=== PATIENT | female | born 1940 | race Caucasian/White ===

== ENCOUNTER → 2016-08-12 | Outpatient (CLI) | payer MEDICARE, OTHER ==
[~2016-08-12] MED LIST: AMLO5TAB2 PO; FESO8TAB PO; INSU70IN9; LOVA40TA72 PO; METF-312 PO; NEBI5TAB2 PO; SERT-274 PO
== END | disposition home or self-care (01) ==
LOC: LAB 12:20
PROVIDERS: ATTEND Internal Medicine Cardiovascular Disease
DX: E11.9 Type 2 diabetes mellitus without complications (principal)
CPT/HCPCS: 36415; 83036

== ENCOUNTER → 2016-11-09 | Outpatient (CLI) | payer MEDICARE, OTHER ==
[2016-11-09 12:41] LABS: Urine Bilirubin Negative (Negative); Urine Blood 1+ /uL (Negative); Urine Color Yellow (Yellow); Urine Glucose Normal (Normal); Urine Ketone Negative (Negative); Urine Nitrite POSITIVE (Negative); Urine Urobilinogen Normal (Negative); Urine pH 7.5 (5.0-8.0)
[2016-11-09 12:59] LABS: Basophils # (auto) 0 uL; Basophils % (auto) 0.6 % (0.0-2.0); Eosinophils # (auto) 0.1 uL; Eosinophils % (auto) 2.8 % (0.0-7.0); Hematocrit 33.7 % (36.0-46.0); Hemoglobin 11.3 g/dL (12.2-16.2); Lymphocytes # (auto) 1.7 uL; Lymphocytes % (auto) 36.1 % (10.0-50.0); Mean Corpuscular Hemoglobin 30.1 pg (28.0-32.0); Mean Corpuscular Hgb Conc. 33.6 g/dL (32.0-36.0); Mean Corpuscular Volume 89.8 fL (80.0-100.0); Mean Platelet Volume 10.1 fL (7.4-10.4); Monocytes # (auto) 0.4 uL; Monocytes % (auto) 7.9 % (0.0-12.0); Neutrophils # (auto) 2.5 uL; Neutrophils % (auto) 52.6 % (37.0-80.0); Platelet Count (auto) 253 10^3/uL (140-450); Red Cell Distribution Width 12.9 % (11.6-16.0); White Blood Cell 4.8 10^3/uL (4.4-10.8)
[2016-11-09 13:01] LABS: Albumin 3.4 g/dL (3.4-5.0); Bilirubin, Direct 0.1 mg/dL (0-0.2); Bilirubin, Total 0.3 mg/dL (0.2-1.0); Potassium 3.9 mmol/L (3.5-5.1); Total Protein 7.1 g/dL (6.4-8.2)
== END | disposition home or self-care (01) ==
LOC: LAB 08:20
PROVIDERS: ATTEND Internal Medicine Cardiovascular Disease
DX: I10 Essential (primary) hypertension (principal); E78.00 Pure hypercholesterolemia, unspecified; K74.1 Hepatic sclerosis; E11.9 Type 2 diabetes mellitus without complications; E03.9 Hypothyroidism, unspecified; D64.9 Anemia, unspecified; E55.9 Vitamin D deficiency, unspecified; N39.0 Urinary tract infection, site not specified
CPT/HCPCS: 36415; 80048; 80061; 80076; 81003; 82306; 83036; 84443; 85025

== ENCOUNTER → 2017-02-10 | Outpatient (CLI) | payer MEDICARE, OTHER ==
[~2017-02-10] MED LIST changes: -METF-312 PO; +METF-370 PO
[2017-02-10 13:04] LABS: Basophils # (auto) 0 uL; Basophils % (auto) 0.6 % (0.0-2.0); CONDITION Y; Eosinophils # (auto) 0.2 uL; Eosinophils % (auto) 2.6 % (0.0-7.0); Hematocrit 38.3 % (36.0-46.0); Hemoglobin 12.8 g/dL (12.2-16.2); Lymphocytes # (auto) 2.5 uL; Lymphocytes % (auto) 31.3 % (10.0-50.0); Mean Corpuscular Hemoglobin 30.3 pg (28.0-32.0); Mean Corpuscular Hgb Conc. 33.5 g/dL (32.0-36.0); Mean Corpuscular Volume 90.2 fL (80.0-100.0); Monocytes # (auto) 0.5 uL; Monocytes % (auto) 6.7 % (0.0-12.0); Neutrophils # (auto) 4.7 uL; Neutrophils % (auto) 58.8 % (37.0-80.0); Platelet Count (auto) 253 10^3/uL (140-450); Red Cell Distribution Width 12.8 % (11.6-16.0); White Blood Cell 7.9 10^3/uL (4.4-10.8)
[2017-02-10 13:05] LABS: Urine Bilirubin Negative (Negative); Urine Blood 1+ /uL (Negative); Urine Color Yellow (Yellow); Urine Glucose Normal (Normal); Urine Ketone Negative (Negative); Urine Nitrite Negative (Negative); Urine Urobilinogen Normal (Negative); Urine pH 5.5 (5.0-8.0)
[2017-02-10 13:25] LABS: Albumin 3.2 g/dL (3.4-5.0); Bilirubin, Direct 0.1 mg/dL (0-0.2); Bilirubin, Total 0.7 mg/dL (0.2-1.0); Calcium 10.1 mg/dL (8.5-10.1); Potassium 3.9 mmol/L (3.5-5.1); Total Protein 6.6 g/dL (6.4-8.2)
== END | disposition home or self-care (01) ==
LOC: LAB 08:45
PROVIDERS: ATTEND Internal Medicine Cardiovascular Disease
DX: I10 Essential (primary) hypertension (principal); E78.00 Pure hypercholesterolemia, unspecified; K74.1 Hepatic sclerosis; E11.9 Type 2 diabetes mellitus without complications; E03.9 Hypothyroidism, unspecified; D64.9 Anemia, unspecified; E55.9 Vitamin D deficiency, unspecified; N39.0 Urinary tract infection, site not specified
CPT/HCPCS: 36415; 80048; 80061; 80076; 81003; 82306; 83036; 84443; 85025; 87086; 87088; 87186

== ENCOUNTER → 2017-04-30 | Outpatient (CLI) | payer MEDICARE, OTHER ==
[~2017-04-30] MED LIST changes: +SODIUM CHLORIDE 0.9% 250 ML IV SCH; +VANCOMYCIN 1GM/250ML 250 ML IV ONE; +cefTRIAXone 1GM/50ML D5W 50 ML IV ONE
[2017-04-30 13:40] VITALS: BP 169/53
[2017-04-30 16:01] LABS: Basophils # (auto) 0 uL; Basophils % (auto) 0.5 % (0.0-2.0); Eosinophils # (auto) 0.1 uL; Eosinophils % (auto) 1.4 % (0.0-7.0); Hematocrit 40.3 % (36.0-46.0); Hemoglobin 13.3 g/dL (12.2-16.2); Lymphocytes # (auto) 2.3 uL; Mean Corpuscular Hemoglobin 30.1 pg (28.0-32.0); Mean Platelet Volume 9.5 fL (6.9-10.8); Monocytes # (auto) 0.7 uL; Monocytes % (auto) 8.3 % (0.0-12.0); Neutrophils # (auto) 5.6 uL; Neutrophils % (auto) 63.8 % (37.0-80.0); Nucleated Red Blood Cells % 0.3 %; Platelet Count (auto) 208 10^3/uL (140-450); Red Cell Distribution Width 13.3 % (11.8-14.3); White Blood Cell 8.8 10^3/uL (4.4-10.8)
[2017-04-30 16:14] LABS: Albumin 3.2 g/dL (3.4-5.0); BUN/Creatinine Ratio 34.8; Bilirubin, Total 0.4 mg/dL (0.2-1.0); Calcium 9.9 mg/dL (8.5-10.1); Magnesium 2.7 mg/dL (1.6-2.6); Potassium 4.4 mmol/L (3.5-5.1); Total Protein 6.9 g/dL (6.4-8.2)
[2017-04-30 16:19] LABS: Urine Bilirubin Negative (Negative); Urine Blood 1+ /uL (Negative); Urine Ca Phosphate Crystal MANY /hpf (None Seen); Urine Color Yellow (Yellow); Urine Glucose 3+ mg/dL (Normal); Urine Ketone 2+ (Negative); Urine Mucus FEW (None Seen); Urine Nitrite Negative (Negative); Urine RBC 33 /hpf (0 - 4); Urine Urobilinogen Normal (Negative); Urine pH 8.5 (5.0-8.0)
== END | disposition home or self-care (01) ==
LOC: CHF HDHVI 11:22
PROVIDERS: ATTEND Internal Medicine Cardiovascular Disease
DX: I10 Essential (primary) hypertension (principal); E78.00 Pure hypercholesterolemia, unspecified; E11.9 Type 2 diabetes mellitus without complications; E03.9 Hypothyroidism, unspecified; D64.9 Anemia, unspecified; E55.9 Vitamin D deficiency, unspecified; N39.0 Urinary tract infection, site not specified; E83.42 Hypomagnesemia; A41.9 Sepsis, unspecified organism
CPT/HCPCS: 36415; 80053; 80061; 81001; 82306; 83036; 83735; 84443; 85025; 87040; 87086; 96365; 96366; 96367; G0463; J0696; J3370; 96361

== ENCOUNTER → 2017-06-24 | Outpatient (CLI) | payer MEDICARE, OTHER ==
[~2017-06-24] MED LIST changes: +ASPI81TA27 PO; +DONE10TA17 PO; +INS7030I SC; +LEV100T PO; -SODIUM CHLORIDE 0.9% 250 ML IV SCH; +TOLT4CAP12 PO; -VANCOMYCIN 1GM/250ML 250 ML IV ONE; +ZOLP10TA PO; -cefTRIAXone 1GM/50ML D5W 50 ML IV ONE
[2017-06-24 11:56] LABS: Urine Blood TRACE /uL (Negative); Urine Specific Gravity 1.023 (1.001-1.035)
== END | disposition home or self-care (01) ==
LOC: LAB 10:50
PROVIDERS: ATTEND Internal Medicine Cardiovascular Disease
DX: N39.0 Urinary tract infection, site not specified (principal)
CPT/HCPCS: 81003; 87086

== ENCOUNTER → 2017-07-12 | Outpatient (CLI) | payer MEDICARE, OTHER ==
[2017-07-12 12:32] LABS: Urine Blood 1+ /uL (Negative)
== END | disposition home or self-care (01) ==
LOC: Rad HDHVI 09:22
PROVIDERS: ATTEND Internal Medicine Cardiovascular Disease
DX: I35.0 Nonrheumatic aortic (valve) stenosis (principal); I70.0 Atherosclerosis of aorta; N39.0 Urinary tract infection, site not specified; I10 Essential (primary) hypertension
CPT/HCPCS: 81003; 87086; 93306

== ENCOUNTER → 2017-07-19 | Outpatient (CLI) | payer MEDICARE, OTHER ==
[~2017-07-19] VITALS: Ht 165.1 cm; Wt 90.7 kg
[~2017-07-19] MED LIST changes: +ADENOSINE 76 MG in GIVE UN-DILUTED 0 ML IV ONE; +ADENOSINE 90 MG/30 ML INJ IV ONE
== END | disposition home or self-care (01) ==
LOC: Rad HDHVI 09:48
PROVIDERS: ATTEND Internal Medicine Cardiovascular Disease
DX: I10 Essential (primary) hypertension (principal); E11.65 Type 2 diabetes mellitus with hyperglycemia; F03.90 Unspecified dementia, unspecified severity, without behavioral disturbance, psychotic disturbance, mood disturbance, and anxiety; E78.5 Hyperlipidemia, unspecified; N39.0 Urinary tract infection, site not specified; Z79.4 Long term (current) use of insulin
CPT/HCPCS: 78452; 93005; 96374; 96375; A9500; J0153

== ENCOUNTER → 2017-08-02 | Outpatient (CLI) | payer MEDICARE, OTHER ==
[~2017-08-02] MED LIST changes: -ADENOSINE 76 MG in GIVE UN-DILUTED 0 ML IV ONE; -ADENOSINE 90 MG/30 ML INJ IV ONE
[2017-08-02 17:07] LABS: Urine Blood 3+ /uL (Negative); Urine Specific Gravity 1.026 (1.001-1.035)
== END | disposition home or self-care (01) ==
LOC: Rad HDHVI 12:16
PROVIDERS: ATTEND Internal Medicine Cardiovascular Disease
DX: N28.1 Cyst of kidney, acquired (principal); K80.20 Calculus of gallbladder without cholecystitis without obstruction; K57.30 Diverticulosis of large intestine without perforation or abscess without bleeding; I70.0 Atherosclerosis of aorta; N39.0 Urinary tract infection, site not specified
CPT/HCPCS: 74176; 81003; 87086

== ENCOUNTER → 2017-08-03 | Outpatient (CLI) | payer MEDICARE, OTHER | END | disposition home or self-care (01) | LOC: Rad HDHVI 13:18 | PROVIDERS: ATTEND Internal Medicine Cardiovascular Disease | DX: I73.9 Peripheral vascular disease, unspecified (principal); I35.8 Other nonrheumatic aortic valve disorders; I10 Essential (primary) hypertension; E11.9 Type 2 diabetes mellitus without complications; E78.5 Hyperlipidemia, unspecified; N39.0 Urinary tract infection, site not specified; Z79.4 Long term (current) use of insulin | CPT/HCPCS: 93926 ==

== ENCOUNTER → 2017-08-16 | Outpatient (CLI) | payer MEDICARE, OTHER ==
[2017-08-16 11:08] VITALS: BP 180/68
[2017-08-16 12:43] VITALS: BP 175/49
[2017-08-16 16:29] LABS: Basophils # (auto) 0.1 uL; Basophils % (auto) 0.8 % (0.0-2.0); Eosinophils # (auto) 0.2 uL; Eosinophils % (auto) 2.4 % (0.0-7.0); Hematocrit 40.9 % (36.0-46.0); Hemoglobin 13.3 g/dL (12.2-16.2); Lymphocytes # (auto) 1.3 uL; Mean Corpuscular Hemoglobin 29.7 pg (28.0-32.0); Mean Corpuscular Hgb Conc. 32.6 g/dL (32.0-36.0); Mean Corpuscular Volume 91.3 fL (80.0-100.0); Monocytes # (auto) 0.6 uL; Monocytes % (auto) 8.9 % (0.0-12.0); Neutrophils # (auto) 5.1 uL; Neutrophils % (auto) 69.9 % (37.0-80.0); Nucleated Red Blood Cells % 0.4 %; Platelet Count (auto) 208 10^3/uL (140-450); Red Blood Cells 4.48 10^6/uL (4.0-5.20); Red Cell Distribution Width 13.8 % (11.8-14.3); White Blood Cell 7.3 10^3/uL (4.4-10.8)
[2017-08-16 16:35] LABS: BUN/Creatinine Ratio 29.4; Calcium 9.2 mg/dL (8.5-10.1); Potassium 3.8 mmol/L (3.5-5.1)
[2017-08-16 16:44] LABS: INR 1.05 (0.9-1.15); Partial Thromboplastin Time 27.8 sec (22.64-33.71); Prothrombin Time 11.4 sec (9.37-12.3)
== END | disposition home or self-care (01) ==
LOC: Rad HDHVI 10:03
PROVIDERS: ATTEND Internal Medicine Cardiovascular Disease
DX: Z01.818 Encounter for other preprocedural examination (principal); I70.0 Atherosclerosis of aorta; D64.9 Anemia, unspecified; I10 Essential (primary) hypertension; R79.1 Abnormal coagulation profile
CPT/HCPCS: 36415; 71046; 80048; 85025; 85610; 85730

== ENCOUNTER 2017-08-18 06:39 | Inpatient (IN) | payer MEDICARE, OTHER ==
[~2017-08-18] VITALS: Ht 165.1 cm; Wt 75.0 kg
[~2017-08-18 06:39] MED LIST changes: -FESO8TAB PO; -INSU70IN9
[2017-08-18] MEDS ORDERED: LIDOCAINE 2%HCL (LOCAL ANESTH.) INJ 20ML MDV ONE (07:09)
[2017-08-18] MEDS ORDERED: IOHEXOL 350 MG/ML 100ML IJ ONE ×2 (07:09→08:40)
[2017-08-18] MEDS ORDERED: MIDAZOLAM HCL 1MG/1ML-2 ML VIAL ONE (08:00)
[2017-08-18] MEDS ORDERED: ANGIOMAX 250 MG VIAL IV ONE (08:00)
[2017-08-18] MEDS ORDERED: fentaNYL CITRATE 100 MCG/2 ML VL ONE (08:00)
[2017-08-18] MEDS ORDERED: SODIUM CHL 0.9% 50 ML ONE (08:00)
[2017-08-18] MEDS ORDERED: CLOPIDOGREL 300 MG TAB ONE (08:50)
[2017-08-18] MEDS ORDERED: ASPirin 325 MG TAB ONE (08:51)
[2017-08-18] MEDS ORDERED: MORPHINE SULFATE 4 MG/ML SYR/VIAL IV PRN (09:30)
[2017-08-18] MEDS ORDERED: NITROGLYCERIN 0.4 MG SL TAB SL PRN (09:30)
[2017-08-18] MEDS ORDERED: DEXTROSE (50%) 50ML SYRG IV PRN (09:30)
[2017-08-18] MEDS ORDERED: ENALAPRILAT 1.25 MG/ML-1ML VIAL IV ONE ×2 (09:34→09:45)
[2017-08-18] MEDS: ACCU-CHEK COMFORT CURVE STRIP VI SCH ×3 (10:15→22:18)
[2017-08-18] MEDS ORDERED: ZOLPIDEM TARTRATE 5 MG TAB PO PRN (10:30)
[2017-08-18] MEDS: InsuLIN REG 1unit/0.01ml Soln (100units/ml) SC SCH ×3 (11:21→22:27)
[2017-08-18] MEDS ORDERED: cloNIDine HCL 0.1 MG TAB ONE (11:25)
[2017-08-18] MEDS ORDERED: cloNIDine HCL 0.1 MG TAB PO ONE (11:30)
[2017-08-18 17:25] VITALS: BP 135/55
[2017-08-18] MEDS ORDERED: INSULIN 70/30 1unit/0.01ml Susp (100units/ml) SC SCH (18:00)
[2017-08-18] MEDS ORDERED: DONEPEZIL HYDROCHLORIDE 5 MG TAB PO SCH (22:00)
[2017-08-18] MEDS ORDERED: PRAVASTATIN SODIUM 20 MG TAB PO SCH (22:00)
[2017-08-19 05:00] VITALS: BP 149/61
[2017-08-19] MEDS ORDERED: INSULIN 70/30 1unit/0.01ml Susp (100units/ml) SC SCH (07:00)
[2017-08-19] MEDS: ACCU-CHEK COMFORT CURVE STRIP VI SCH ×2 (07:08→13:24)
[2017-08-19] MEDS: InsuLIN REG 1unit/0.01ml Soln (100units/ml) SC SCH ×2 (07:09→11:30)
[2017-08-19 08:00] VITALS: BP 154/75
[2017-08-19] MEDS ORDERED: ASPirin-EC 81 mg tab PO SCH (10:00)
[2017-08-19] MEDS ORDERED: CLOPIDOGREL BISULFATE 75 MG TAB PO SCH (10:00)
[2017-08-19] MEDS ORDERED: LEVOTHYROXINE SODIUM 100 MCG TAB PO SCH (10:00)
[2017-08-19] MEDS ORDERED: amLODIPine BESYLATE 5 MG TAB PO SCH (10:00)
[2017-08-19] MEDS ORDERED: ASPirin 325 MG TAB PO SCH (10:00)
[2017-08-19] MEDS ORDERED: SERTRALINE HCL 50 MG TAB PO SCH ×2 (10:00)
[2017-08-19 12:00] VITALS: BP 157/73
[2017-08-19 17:00] VITALS: BP 164/84
[2017-08-19 18:08] VITALS: BP 143/78
[2017-08-19 18:21] VITALS: BP 143/78
== END 2017-08-19 19:05 | disposition home or self-care (01) | DRG 247 ==
LOC: CATH 06:39 → TELE-EAST 06:40
PROVIDERS: ADMIT Internal Medicine; ATTEND Internal Medicine
PROC: 027034Z Dilation of Coronary Artery, One Artery with Drug-eluting Intraluminal Device, Percutaneous Approach (ICD-10-PCS; principal; 2017-08-18)
PROC: 4A023N8 Measurement of Cardiac Sampling and Pressure, Bilateral, Percutaneous Approach (ICD-10-PCS; 2017-08-18)
PROC: B2111ZZ Fluoroscopy of Multiple Coronary Arteries using Low Osmolar Contrast (ICD-10-PCS; 2017-08-18)
PROC: B2151ZZ Fluoroscopy of Left Heart using Low Osmolar Contrast (ICD-10-PCS; 2017-08-18)
DX: I25.10 Atherosclerotic heart disease of native coronary artery without angina pectoris (principal); I27.20 Pulmonary hypertension, unspecified; E11.9 Type 2 diabetes mellitus without complications; F03.90 Unspecified dementia, unspecified severity, without behavioral disturbance, psychotic disturbance, mood disturbance, and anxiety; N31.9 Neuromuscular dysfunction of bladder, unspecified; E78.5 Hyperlipidemia, unspecified; I10 Essential (primary) hypertension; Z82.49 Family history of ischemic heart disease and other diseases of the circulatory system
CPT/HCPCS: 36415; 71046; 80048; 82962; 85025; 85610; 85730; 92928; 93460; 99152; C1874; G0463; J1815; J2250

== ENCOUNTER → 2017-09-16 | Outpatient (CLI) | payer MEDICARE, OTHER ==
[2017-09-16 15:54] LABS: Urine Blood 2+ /uL (Negative); Urine Specific Gravity 1.023 (1.001-1.035)
== END | disposition home or self-care (01) ==
LOC: LAB 12:45
PROVIDERS: ATTEND Internal Medicine
DX: N39.0 Urinary tract infection, site not specified (principal)
CPT/HCPCS: 81003; 87086

== ENCOUNTER → 2017-11-24 | Outpatient (CLI) | payer MEDICARE, OTHER ==
[~2017-11-24] MED LIST changes: +EPINEPHrine HCL 1 MG/10 ML SYRG IV ONE; +EPINEPHrine HCL 1 MG/10 ML SYRG ONE; +LIDOCAINE 1% (LOCAL ANESTH.) PF 5ml SDV IJ ONE; +LIDOCAINE 1% (LOCAL ANESTH.) PF 5ml SDV ONE
[2017-11-24 11:35] VITALS: BP 140/56
[2017-11-24 12:45] VITALS: BP 111/61
[2017-11-24 15:58] LABS: Basophils # (auto) 0 uL; Basophils % (auto) 0.5 % (0.0-2.0); Eosinophils # (auto) 0.3 uL; Eosinophils % (auto) 3.1 % (0.0-7.0); Hematocrit 36.8 % (36.0-46.0); Lymphocytes % (auto) 24.1 % (10.0-50.0); Mean Corpuscular Hemoglobin 29.8 pg (28.0-32.0); Mean Corpuscular Hgb Conc. 32.6 g/dL (32.0-36.0); Mean Corpuscular Volume 91.2 fL (80.0-100.0); Monocytes # (auto) 0.6 uL; Monocytes % (auto) 6.8 % (0.0-12.0); Neutrophils # (auto) 5.5 uL; Neutrophils % (auto) 65.5 % (37.0-80.0); Nucleated Red Blood Cells % 0.3 %; Platelet Count (auto) 218 10^3/uL (140-450); Red Blood Cells 4.03 10^6/uL (4.0-5.20); Red Cell Distribution Width 14.3 % (11.8-14.3); White Blood Cell 8.5 10^3/uL (4.4-10.8)
[2017-11-24 16:22] LABS: Bilirubin, Total 0.4 mg/dL (0.2-1.0); Calcium 9.4 mg/dL (8.5-10.1); Magnesium 2.7 mg/dL (1.6-2.6); Potassium 3.6 mmol/L (3.5-5.1); Total Protein 6.5 g/dL (6.4-8.2)
== END | disposition home or self-care (01) ==
LOC: CHF HDHVI 11:49
PROVIDERS: ATTEND Internal Medicine Cardiovascular Disease
DX: R97.0 Elevated carcinoembryonic antigen [CEA] (principal); I10 Essential (primary) hypertension; D64.9 Anemia, unspecified; E83.40 Disorders of magnesium metabolism, unspecified; Z85.3 Personal history of malignant neoplasm of breast
CPT/HCPCS: 36415; 80053; 82378; 83735; 85025; 96372; G0463; J0171

== ENCOUNTER → 2017-12-06 | Outpatient (CLI) | payer MEDICARE, OTHER ==
[~2017-12-06] MED LIST changes: -EPINEPHrine HCL 1 MG/10 ML SYRG IV ONE; -EPINEPHrine HCL 1 MG/10 ML SYRG ONE; -LIDOCAINE 1% (LOCAL ANESTH.) PF 5ml SDV IJ ONE; -LIDOCAINE 1% (LOCAL ANESTH.) PF 5ml SDV ONE
[2017-12-06 12:21] LABS: Urine Blood 1+ /uL (Negative); Urine Specific Gravity 1.023 (1.001-1.035)
== END | disposition home or self-care (01) ==
LOC: LAB 10:28
PROVIDERS: ATTEND Internal Medicine
DX: N39.0 Urinary tract infection, site not specified (principal); I10 Essential (primary) hypertension; E11.9 Type 2 diabetes mellitus without complications; E78.5 Hyperlipidemia, unspecified
CPT/HCPCS: 81003; 87086

== ENCOUNTER 2018-01-05 10:35 | Day surgery (SDC) | payer MEDICARE, OTHER ==
[2018-01-03 11:30] LABS: Basophils # (auto) 0.1 uL; Basophils % (auto) 0.7 % (0.0-2.0); Eosinophils # (auto) 0.3 uL; Eosinophils % (auto) 3.2 % (0.0-7.0); Hematocrit 41.1 % (36.0-46.0); Hemoglobin 13.3 g/dL (12.2-16.2); Lymphocytes # (auto) 1.7 uL; Lymphocytes % (auto) 20.6 % (10.0-50.0); Mean Corpuscular Hemoglobin 29.8 pg (28.0-32.0); Mean Corpuscular Hgb Conc. 32.4 g/dL (32.0-36.0); Mean Corpuscular Volume 92.2 fL (80.0-100.0); Monocytes # (auto) 0.7 uL; Monocytes % (auto) 7.9 % (0.0-12.0); Neutrophils # (auto) 5.7 uL; Neutrophils % (auto) 67.6 % (37.0-80.0); Nucleated Red Blood Cells % 0.1 %; Platelet Count (auto) 220 10^3/uL (140-450); Red Blood Cells 4.46 10^6/uL (4.0-5.20); Red Cell Distribution Width 13.6 % (11.8-14.3); White Blood Cell 8.4 10^3/uL (4.4-10.8)
[2018-01-03 11:46] LABS: INR 1.02 (0.9-1.15); Partial Thromboplastin Time 27.7 sec (23.78-33.04); Prothrombin Time 10.9 sec (9.27-12.13)
[2018-01-03 11:58] LABS: Albumin 3.2 g/dL (3.4-5.0); BUN/Creatinine Ratio 31.2; Bilirubin, Total 0.4 mg/dL (0.2-1.0); Calcium 9.3 mg/dL (8.5-10.1); Potassium 3.9 mmol/L (3.5-5.1); Total Protein 6.9 g/dL (6.4-8.2)
[~2018-01-05] VITALS: Ht 165.1 cm; Wt 88.5 kg
[~2018-01-05 10:35] MED LIST changes: -AMLO5TAB2 PO; +CLOP75TA28 PO; +LETR2.5T PO; +METH1TAB PO; +PANT40TA2 PO; +TOLT2CAP7 PO; -ZOLP10TA PO
[2018-01-05] MEDS ORDERED: BUPIVACAINE 0.25% INJ 50ML VIAL ONE (12:36)
[2018-01-05] MEDS ORDERED: ceFAZolin 1GM/50ML 50 ML IV ONE (12:46)
[2018-01-05] MEDS ORDERED: MIDAZOLAM HCL 1MG/1ML-2 ML VIAL ONE ×2 (12:59→13:24)
[2018-01-05] MEDS ORDERED: BUPIVACAINE W/ EPINEPH 0.25% INJ 50ML MDV ONE (12:59)
[2018-01-05] MEDS ORDERED: LIDOCAINE HCL 2 %PF INJ 10ML AMP IJ ONE (12:59)
[2018-01-05] MEDS ORDERED: PROPOFOL 10 MG/ML 20 ML IV ONE (12:59)
[2018-01-05] MEDS ORDERED: LIDOCAINE W/ EPINEPHRINE 1 % INJ 30ML ONE (12:59)
[2018-01-05] MEDS ORDERED: MORPHINE SULF INJ 2 MG/ML SYRINGE 1ML IV PRN (13:15)
[2018-01-05] MEDS ORDERED: hydrALAZINE HCL 20 MG/ML VL IV PRN (13:15)
[2018-01-05] MEDS ORDERED: NALOXONE HCL 0.4 MG/ML VIAL IV PRN (13:15)
[2018-01-05] MEDS ORDERED: ACCU-CHEK COMFORT CURVE STRIP VI ONE (13:15)
[2018-01-05] MEDS ORDERED: ONDANSETRON HCL 4 MG/2 ML VIAL IV ONE (13:15)
[2018-01-05] MEDS ORDERED: fentaNYL CITRATE 100 MCG/2 ML VL ONE (13:22)
[2018-01-05] MEDS ORDERED: ePHEDrine SULFATE 50 MG/ML AMP ONE (13:36)
[2018-01-05 14:37] VITALS: BP 170/65
== END 2018-01-05 14:45 | disposition home or self-care (01) ==
LOC: SUR 10:35
PROVIDERS: ATTEND Surgery
DX: C50.912 Malignant neoplasm of unspecified site of left female breast (principal); J44.9 Chronic obstructive pulmonary disease, unspecified; E66.9 Obesity, unspecified; E11.9 Type 2 diabetes mellitus without complications; I25.10 Atherosclerotic heart disease of native coronary artery without angina pectoris; F03.90 Unspecified dementia, unspecified severity, without behavioral disturbance, psychotic disturbance, mood disturbance, and anxiety; J40 Bronchitis, not specified as acute or chronic; I10 Essential (primary) hypertension; G47.33 Obstructive sleep apnea (adult) (pediatric); K21.9 Gastro-esophageal reflux disease without esophagitis; M06.9 Rheumatoid arthritis, unspecified; F32.9 Major depressive disorder, single episode, unspecified; E03.9 Hypothyroidism, unspecified; Z68.32 Body mass index [BMI] 32.0-32.9, adult; Z85.3 Personal history of malignant neoplasm of breast; Z95.1 Presence of aortocoronary bypass graft; Z82.3 Family history of stroke; Z82.49 Family history of ischemic heart disease and other diseases of the circulatory system; Z98.890 Other specified postprocedural states; Z79.82 Long term (current) use of aspirin; Z79.84 Long term (current) use of oral hypoglycemic drugs; Z79.899 Other long term (current) drug therapy; Z90.12 Acquired absence of left breast and nipple; Z86.73 Personal history of transient ischemic attack (TIA), and cerebral infarction without residual deficits
CPT/HCPCS: 19120; 36415; 80053; 82962; 85025; 85610; 85730; J0690; J2250; J2704; J3010; J3490; A6257

== ENCOUNTER → 2018-01-21 | Outpatient (CLI) | payer MEDICARE, OTHER | END | disposition home or self-care (01) | LOC: LAB 08:42 | PROVIDERS: ATTEND Internal Medicine | DX: E61.1 Iron deficiency (principal); R79.89 Other specified abnormal findings of blood chemistry; I10 Essential (primary) hypertension; E11.9 Type 2 diabetes mellitus without complications; E03.9 Hypothyroidism, unspecified; E78.5 Hyperlipidemia, unspecified; J44.9 Chronic obstructive pulmonary disease, unspecified; Z79.82 Long term (current) use of aspirin; Z79.899 Other long term (current) drug therapy | CPT/HCPCS: 82728; 83540; 83550 ==

== ENCOUNTER → 2018-02-04 | Outpatient (CLI) | payer MEDICARE, OTHER ==
[2018-02-04 12:00] LABS: Basophils # (auto) 0 uL; Basophils % (auto) 0.7 % (0.0-2.0); Eosinophils # (auto) 0.1 uL; Eosinophils % (auto) 2.1 % (0.0-7.0); Hematocrit 38.4 % (36.0-46.0); Hemoglobin 12.8 g/dL (12.2-16.2); Lymphocytes # (auto) 1.4 uL; Mean Corpuscular Hemoglobin 30.1 pg (28.0-32.0); Mean Corpuscular Hgb Conc. 33.3 g/dL (32.0-36.0); Mean Corpuscular Volume 90.2 fL (80.0-100.0); Monocytes # (auto) 0.6 uL; Monocytes % (auto) 8.5 % (0.0-12.0); Neutrophils # (auto) 4.7 uL; Neutrophils % (auto) 68.7 % (37.0-80.0); Nucleated Red Blood Cells % 0.1 %; Platelet Count (auto) 205 10^3/uL (140-450); Red Blood Cells 4.25 10^6/uL (4.0-5.20); Red Cell Distribution Width 12.9 % (11.8-14.3); White Blood Cell 6.9 10^3/uL (4.4-10.8)
[2018-02-04 12:37] LABS: Albumin 3.3 g/dL (3.4-5.0); Bilirubin, Total 0.4 mg/dL (0.2-1.0); Calcium 9.4 mg/dL (8.5-10.1); Potassium 3.8 mmol/L (3.5-5.1); Total Protein 6.8 g/dL (6.4-8.2)
== END | disposition home or self-care (01) ==
LOC: LAB 11:27
PROVIDERS: ATTEND Internal Medicine
DX: C50.912 Malignant neoplasm of unspecified site of left female breast (principal)
CPT/HCPCS: 36415; 80053; 83615; 85025; 86300

== ENCOUNTER 2018-02-16 11:47 | Emergency (ER) | payer MEDICARE, OTHER ==
[~2018-02-16] VITALS: Ht 165.1 cm; Wt 96.6 kg
[2018-02-16 15:00] VITALS: BP 146/62
== END 2018-02-16 16:55 | disposition home or self-care (01) ==
LOC: ER 11:49
DX: C50.512 Malignant neoplasm of lower-outer quadrant of left female breast (principal); L98.9 Disorder of the skin and subcutaneous tissue, unspecified; I10 Essential (primary) hypertension
CPT/HCPCS: 82962

== ENCOUNTER 2018-03-23 06:42 | Inpatient (IN) | payer MEDICARE, OTHER ==
[2018-03-21 12:53] LABS: Basophils # (auto) 0 uL; Basophils % (auto) 0.4 % (0.0-2.0); Eosinophils # (auto) 0.1 uL; Hematocrit 38.3 % (36.0-46.0); Hemoglobin 12.6 g/dL (12.2-16.2); Lymphocytes # (auto) 1.7 uL; Mean Corpuscular Hemoglobin 29.9 pg (28.0-32.0); Mean Corpuscular Hgb Conc. 32.9 g/dL (32.0-36.0); Mean Corpuscular Volume 90.8 fL (80.0-100.0); Monocytes # (auto) 0.6 uL; Monocytes % (auto) 8.3 % (0.0-12.0); Neutrophils # (auto) 4.6 uL; Neutrophils % (auto) 65.3 % (37.0-80.0); Platelet Count (auto) 231 10^3/uL (140-450); Red Blood Cells 4.22 10^6/uL (4.0-5.20); Red Cell Distribution Width 14.1 % (11.8-14.3); White Blood Cell 7.1 10^3/uL (4.4-10.8)
[2018-03-21 13:03] LABS: INR 0.99 (0.9-1.15); Partial Thromboplastin Time 26.8 sec (23.78-33.04); Prothrombin Time 10.6 sec (9.27-12.13)
[2018-03-21 13:09] LABS: Albumin 2.9 g/dL (3.4-5.0); BUN/Creatinine Ratio 26.3; Potassium 3.9 mmol/L (3.5-5.1)
[2018-03-21 13:12] LABS: Bilirubin, Total 0.4 mg/dL (0.2-1.0); Total Protein 6.5 g/dL (6.4-8.2)
[~2018-03-23] VITALS: Ht 165.1 cm; Wt 97.6 kg
[~2018-03-23 06:42] MED LIST changes: +LOSA100T33 PO; -METH1TAB PO; +OXYB5TAB61 PO; +PREN-96 PO; -SERT-274 PO; -TOLT2CAP7 PO; -TOLT4CAP12 PO; +TURM500C3 OR; +ZOLP10TA PO
[2018-03-23] MEDS ORDERED: ceFAZolin 1GM/50ML 50 ML IV ONE (08:15)
[2018-03-23] MEDS ORDERED: SUCCINYLCHOLINE CHLORIDE 20 MG/ML 10ML VIAL IV ONE (09:19)
[2018-03-23] MEDS ORDERED: ETOMIDATE (2MG/ML) 20ML VIAL IV ONE (09:19)
[2018-03-23] MEDS ORDERED: fentaNYL CITRATE 5 ML ONE (09:20)
[2018-03-23] MEDS ORDERED: MIDAZOLAM HCL 1MG/1ML-2 ML VIAL ONE (09:20)
[2018-03-23] MEDS ORDERED: PROPOFOL 10 MG/ML 20 ML IV ONE (09:23)
[2018-03-23] MEDS ORDERED: DEXAMETHASONE SOD PHOS 10MG/1ML VIAL INJ ONE (09:23)
[2018-03-23] MEDS ORDERED: ePHEDrine SULFATE 50 MG/ML AMP IV PRN (10:15)
[2018-03-23] MEDS ORDERED: MORPHINE SULFATE 4 MG/ML SYR/VIAL IV PRN ×3 (10:15→12:45)
[2018-03-23] MEDS ORDERED: LABETALOL HCL 5 MG/ML 4ML SYRINGE IV PRN (10:15)
[2018-03-23] MEDS ORDERED: ONDANSETRON HCL 4 MG/2 ML VIAL IV ONE (10:15)
[2018-03-23] MEDS ORDERED: MIDAZOLAM HCL 1MG/1ML-2 ML VIAL IV PRN (10:15)
[2018-03-23] MEDS ORDERED: HYDROmorphone HCL 2 MG/ML VL IV PRN (10:15)
[2018-03-23] MEDS ORDERED: NITROGLYCERIN 0.4 MG SL TAB SL PRN (11:30)
[2018-03-23] MEDS ORDERED: MORPHINE SULFATE 4 MG/ML SYR/VIAL IV ONE (12:00)
[2018-03-23] MEDS ORDERED: LOSARTAN POTASSIUM 50 MG TAB PO ONE (12:45)
[2018-03-23] MEDS ORDERED: DEXTROSE (50%) 50ML SYRG IV PRN (12:45)
[2018-03-23] MEDS ORDERED: ONDANSETRON HCL 4 MG/2 ML VIAL IV PRN (12:45)
[2018-03-23] MEDS ORDERED: LABETALOL HCL 5 MG/ML ML 20ML VIAL IV PRN (13:00)
[2018-03-23 14:14] VITALS: BP 162/70
[2018-03-23] MEDS: HYDROcodone-ACET 5/325MG TAB PO PRN (15:09)
[2018-03-23] MEDS ORDERED: guaiFENesin 200 MG/10 ML UD PO PRN (15:30)
[2018-03-23] MEDS: ACCU-CHEK COMFORT CURVE STRIP VI SCH ×2 (16:31→22:26)
[2018-03-23] MEDS: InsuLIN REG 1unit/0.01ml Soln (100units/ml) SC SCH ×2 (17:02→22:26)
[2018-03-23 17:04] VITALS: BP 161/65
[2018-03-23 17:15] VITALS: BP 149/58
[2018-03-23 22:00] VITALS: BP 125/43
[2018-03-24 05:00] VITALS: BP 119/54
[2018-03-24 05:07] LABS: Basophils # (auto) 0 uL; Basophils % (auto) 0.2 % (0.0-2.0); Eosinophils # (auto) 0 uL; Hematocrit 31.1 % (36.0-46.0); Hemoglobin 10.5 g/dL (12.2-16.2); Lymphocytes # (auto) 1.5 uL; Lymphocytes % (auto) 15.2 % (10.0-50.0); Mean Corpuscular Hemoglobin 30.5 pg (28.0-32.0); Mean Corpuscular Hgb Conc. 33.8 g/dL (32.0-36.0); Mean Corpuscular Volume 90.1 fL (80.0-100.0); Monocytes % (auto) 10.1 % (0.0-12.0); Neutrophils # (auto) 7.2 uL; Neutrophils % (auto) 74.5 % (37.0-80.0); Platelet Count (auto) 214 10^3/uL (140-450); Red Blood Cells 3.46 10^6/uL (4.0-5.20); Red Cell Distribution Width 13.8 % (11.8-14.3); White Blood Cell 9.7 10^3/uL (4.4-10.8)
[2018-03-24 05:26] LABS: BUN/Creatinine Ratio 29.1; Calcium 8.7 mg/dL (8.5-10.1); Potassium 3.9 mmol/L (3.5-5.1)
[2018-03-24] MEDS: ACCU-CHEK COMFORT CURVE STRIP VI SCH (06:44)
[2018-03-24] MEDS: InsuLIN REG 1unit/0.01ml Soln (100units/ml) SC SCH (06:44)
[2018-03-24] MEDS ORDERED: LEVOTHYROXINE SODIUM 100 MCG TAB PO SCH (07:00)
[2018-03-24 08:13] VITALS: BP 115/56
[2018-03-24] MEDS: HYDROcodone-ACET 5/325MG TAB PO PRN (09:21)
[2018-03-24] MEDS ORDERED: PANTOPRAZOLE 40 MG TAB PO SCH (10:00)
[2018-03-24] MEDS ORDERED: BYSTOLIC 5 MG PO SCH (10:00)
[2018-03-24] MEDS ORDERED: LOSARTAN POTASSIUM 50 MG TAB PO SCH (10:00)
[2018-03-24 10:12] VITALS: BP 115/56
== END 2018-03-24 11:48 | disposition home or self-care (01) | DRG 583 ==
LOC: SUR 06:42 → TELE-CENTR 06:43
PROVIDERS: ADMIT Surgery; ATTEND Internal Medicine
PROC: 0HTU0ZZ Resection of Left Breast, Open Approach (ICD-10-PCS; principal; 2018-03-23 09:19)
DX: C50.912 Malignant neoplasm of unspecified site of left female breast (principal); E66.9 Obesity, unspecified; E03.9 Hypothyroidism, unspecified; E11.9 Type 2 diabetes mellitus without complications; E78.5 Hyperlipidemia, unspecified; F03.90 Unspecified dementia, unspecified severity, without behavioral disturbance, psychotic disturbance, mood disturbance, and anxiety; I10 Essential (primary) hypertension; I25.10 Atherosclerotic heart disease of native coronary artery without angina pectoris; Z95.5 Presence of coronary angioplasty implant and graft; Z68.35 Body mass index [BMI] 35.0-35.9, adult; Z79.899 Other long term (current) drug therapy
CPT/HCPCS: 36415; 80048; 80053; 82962; 83036; 84443; 85025; 85610; 85730; J0330; J0690; J1100; J1815; J2250; J2405; J2704

== ENCOUNTER 2018-03-29 20:22 | Emergency (ER) | payer MEDICARE, OTHER | END 2018-03-29 21:30 | disposition left against medical advice (07) | LOC: ER 20:22 | DX: T81.89XA Other complications of procedures, not elsewhere classified, initial encounter (principal); Z53.21 Procedure and treatment not carried out due to patient leaving prior to being seen by health care provider ==

== ENCOUNTER 2018-04-09 12:48 | Inpatient (IN) | payer MEDICARE, OTHER ==
[~2018-04-09] VITALS: Ht 165.1 cm; Wt 100.6 kg
[2018-04-09] MEDS ORDERED: SODIUM CHLORIDE 0.9% 1,000 ML IV ONE (13:29)
[2018-04-09] MEDS ORDERED: PIPERACILLIN-TAZOB 3.375GM 100 ML IV ONE (13:30)
[2018-04-09 14:30] LABS: Basophils # (auto) 0 uL; Basophils % (auto) 0.1 % (0.0-2.0); Eosinophils # (auto) 0 uL; Hematocrit 31.3 % (36.0-46.0); Lymphocytes # (auto) 0.9 uL; Lymphocytes % (auto) 4.3 % (10.0-50.0); Mean Corpuscular Volume 90.7 fL (80.0-100.0); Monocytes # (auto) 2.4 uL; Monocytes % (auto) 11.4 % (0.0-12.0); Neutrophils % (auto) 84.2 % (37.0-80.0); Platelet Count (auto) 350 10^3/uL (140-450); Red Blood Cells 3.45 10^6/uL (4.0-5.20); Red Cell Distribution Width 14.3 % (11.8-14.3); White Blood Cell 21.3 10^3/uL (4.4-10.8)
[2018-04-09 14:43] LABS: INR 1.02 (0.9-1.15); Partial Thromboplastin Time 29.4 sec (23.78-33.04); Prothrombin Time 10.9 sec (9.27-12.13)
[2018-04-09 14:55] LABS: Albumin 2.1 g/dL (3.4-5.0); Anion Gap 10 (5-15); BUN/Creatinine Ratio 24.8; Blood Urea Nitrogen 33 mg/dL (7-18); Calcium 8.8 mg/dL (8.5-10.1); Carbon Dioxide 23 mmol/L (21-32); Chloride 105 mmol/L (98-107); GFR African American 49 mL/min; GFR Non-African American 41 mL/min; Glucose 226 mg/dL (74-106); Potassium 4.2 mmol/L (3.5-5.1); Sodium 138 mmol/L (136-145)
[2018-04-09 15:00] LABS: Alanine Aminotransferase 20 U/L (13-56); Alkaline Phosphatase 95 U/L (45-117); Aspartate Aminotransferase 18 U/L (15-37); Bilirubin, Total 0.7 mg/dL (0.2-1.0); Total Protein 6.5 g/dL (6.4-8.2)
[2018-04-09] MEDS ORDERED: HYDROcodone-ACET 5/325MG TAB ONE (15:01)
[2018-04-09 15:02] LABS: Lactic Acid w/Reflex 3.6 mmol/L (0.4-2.0)
[2018-04-09] MEDS ORDERED: DEXTROSE (50%) 50ML SYRG IV PRN (16:15)
[2018-04-09] MEDS ORDERED: HYDROcodone-ACET 5/325MG TAB PO ONE (16:15)
[2018-04-09] MEDS ORDERED: VANCOMYCIN PER PHARMACY 0 MG IV SCH (16:15)
[2018-04-09] MEDS ORDERED: ONDANSETRON HCL 4 MG/2 ML VIAL IV PRN (16:30)
[2018-04-09] MEDS ORDERED: MORPHINE SULFATE 4 MG/ML SYR/VIAL IV PRN (16:30)
[2018-04-09] MEDS ORDERED: NITROGLYCERIN 0.4 MG SL TAB SL PRN (16:30)
[2018-04-09] MEDS ORDERED: VANCOMYCIN 1GM/250ML 250 ML IV ONE (17:00)
[2018-04-09] MEDS ORDERED: ZINC SULFATE 220mg CAP or TAB PO ONE (17:00)
[2018-04-09] MEDS ORDERED: ASCORBIC ACID 500 MG TAB PO ONE (17:00)
[2018-04-09] MEDS ORDERED: MULTIPLE VITAMIN TAB PO ONE (17:00)
[2018-04-09] MEDS: ACCU-CHEK COMFORT CURVE STRIP VI SCH ×2 (17:10→22:00)
[2018-04-09] MEDS: InsuLIN REG 1unit/0.01ml Soln (100units/ml) SC SCH ×2 (17:18→22:00)
[2018-04-09] MEDS: INSULIN 70/30 1unit/0.01ml Susp (100units/ml) SC SCH (17:24)
[2018-04-09] MEDS: Glucerna Carbsteady SHAKE Vanilla 8oz PO SCH (18:00)
[2018-04-09] MEDS: PIPERACILLIN-TAZOB 2.25GM 50 ML IV SCH (18:00)
[2018-04-09 19:27] LABS: Lactic Acid w/Reflex 2.8 mmol/L (0.4-2.0)
[2018-04-09] MEDS: MORPHINE SULFATE 4 MG/ML SYR/VIAL IV PRN (20:14)
[2018-04-09 22:00] VITALS: BP 122/49
[2018-04-09] MEDS: SODIUM CHLOR 0.9% PF (SALINE LOCK) 10ML VIAL/SYR IV SCH (22:00)
[2018-04-09] MEDS: DONEPEZIL HYDROCHLORIDE 5 MG TAB PO SCH (22:33)
[2018-04-09] MEDS: ATORVASTATIN 20 MG TAB PO SCH (22:33)
[2018-04-09] MEDS: ASCORBIC ACID 500 MG TAB PO SCH (22:34)
[2018-04-09] MEDS: FAMOTIDINE 20 MG TAB PO SCH (22:34)
[2018-04-10] VITALS (7 sets, daily range): BP systolic 122–151; BP diastolic 48–61
[2018-04-10] MEDS: SODIUM CHLOR 0.9% PF (SALINE LOCK) 10ML VIAL/SYR IV SCH ×3 (06:05→22:20)
[2018-04-10] MEDS: PIPERACILLIN-TAZOB 2.25GM 50 ML IV SCH ×4 (06:05→17:56)
[2018-04-10] MEDS: LEVOTHYROXINE SODIUM 100 MCG TAB PO SCH (06:05)
[2018-04-10] MEDS: InsuLIN REG 1unit/0.01ml Soln (100units/ml) SC SCH ×4 (06:05→22:18)
[2018-04-10] MEDS: ACCU-CHEK COMFORT CURVE STRIP VI SCH ×4 (06:06→22:19)
[2018-04-10 07:59] LABS: Albumin 1.6 g/dL (3.4-5.0); Calcium 8.4 mg/dL (8.5-10.1); Potassium 3.9 mmol/L (3.5-5.1)
[2018-04-10] MEDS: Glucerna Carbsteady SHAKE Vanilla 8oz PO SCH ×3 (08:00→17:57)
[2018-04-10 08:01] LABS: Basophils # (auto) 0 uL; Basophils % (auto) 0.2 % (0.0-2.0); Eosinophils # (auto) 0.2 uL; Monocytes # (auto) 1.8 uL; White Blood Cell 15.5 10^3/uL (4.4-10.8)
[2018-04-10 08:03] LABS: BUN/Creatinine Ratio 35.8; Bilirubin, Total 0.4 mg/dL (0.2-1.0); Hematocrit 25.4 % (36.0-46.0); Hemoglobin 8.1 g/dL (12.2-16.2); Lymphocytes # (auto) 1.8 uL; Lymphocytes % (auto) 11.5 % (10.0-50.0); Mean Corpuscular Hemoglobin 28.6 pg (28.0-32.0); Mean Corpuscular Volume 89.5 fL (80.0-100.0); Monocytes % (auto) 11.4 % (0.0-12.0); Neutrophils # (auto) 11.8 uL; Neutrophils % (auto) 75.9 % (37.0-80.0); Platelet Count (auto) 297 10^3/uL (140-450); Red Blood Cells 2.84 10^6/uL (4.0-5.20); Total Protein 5.2 g/dL (6.4-8.2)
[2018-04-10] MEDS: INSULIN 70/30 1unit/0.01ml Susp (100units/ml) SC SCH ×2 (08:32→17:57)
[2018-04-10] MEDS: OXYBUTYNIN CHL 5 MG TAB PO SCH (09:56)
[2018-04-10] MEDS: CLOPIDOGREL BISULFATE 75 MG TAB PO SCH (09:56)
[2018-04-10] MEDS: ZINC SULFATE 220mg CAP or TAB PO SCH (09:56)
[2018-04-10] MEDS: ASCORBIC ACID 500 MG TAB PO SCH ×2 (09:56→22:19)
[2018-04-10] MEDS: ASPirin-EC 81 mg tab PO SCH (09:57)
[2018-04-10] MEDS: PANTOPRAZOLE 40 MG TAB PO SCH (09:58)
[2018-04-10] MEDS: LETROZOLE 2.5MG TAB PO SCH (10:00)
[2018-04-10] MEDS: TURMERIC 500 MG PO SCH (10:00)
[2018-04-10] MEDS: MULTIPLE VITAMIN TAB PO SCH (10:00)
[2018-04-10] MEDS: BYSTOLIC 5 MG PO SCH (10:00)
[2018-04-10] MEDS: PRENATAL VITAMIN TAB PO SCH (10:00)
[2018-04-10] MEDS: LOSARTAN POTASSIUM 25 MG TAB PO SCH (10:00)
[2018-04-10] MEDS: HYDROcodone-ACET 5/325MG TAB PO PRN ×2 (10:36→20:46)
[2018-04-10] MEDS: VANCOMYCIN 1GM/250ML 250 ML IV SCH (16:07)
[2018-04-10] MEDS: ATORVASTATIN 20 MG TAB PO SCH (22:19)
[2018-04-10] MEDS: DONEPEZIL HYDROCHLORIDE 5 MG TAB PO SCH (22:19)
[2018-04-10] MEDS: TEMAZEPAM 15 MG CAP PO PRN (22:19)
[2018-04-10] MEDS: FAMOTIDINE 20 MG TAB PO SCH (22:19)
[2018-04-11] MEDS: PIPERACILLIN-TAZOB 2.25GM 50 ML IV SCH ×5 (00:19→23:27)
[2018-04-11] MEDS: HYDROcodone-ACET 5/325MG TAB PO PRN ×4 (03:16→22:00)
[2018-04-11 05:00] VITALS: BP 124/47
[2018-04-11] MEDS: SODIUM CHLOR 0.9% PF (SALINE LOCK) 10ML VIAL/SYR IV SCH ×3 (05:53→21:54)
[2018-04-11] MEDS: InsuLIN REG 1unit/0.01ml Soln (100units/ml) SC SCH ×4 (06:29→21:52)
[2018-04-11] MEDS: ACCU-CHEK COMFORT CURVE STRIP VI SCH ×4 (06:29→21:52)
[2018-04-11] MEDS: LEVOTHYROXINE SODIUM 100 MCG TAB PO SCH (06:30)
[2018-04-11] MEDS: Glucerna Carbsteady SHAKE Vanilla 8oz PO SCH ×3 (08:37→18:15)
[2018-04-11] MEDS: INSULIN 70/30 1unit/0.01ml Susp (100units/ml) SC SCH ×2 (08:37→18:15)
[2018-04-11] MEDS: MULTIPLE VITAMIN TAB PO SCH (10:00)
[2018-04-11] MEDS: ASCORBIC ACID 500 MG TAB PO SCH ×2 (11:20→21:53)
[2018-04-11] MEDS: ASPirin-EC 81 mg tab PO SCH (11:20)
[2018-04-11] MEDS: OXYBUTYNIN CHL 5 MG TAB PO SCH (11:20)
[2018-04-11] MEDS: CLOPIDOGREL BISULFATE 75 MG TAB PO SCH (11:20)
[2018-04-11] MEDS: PANTOPRAZOLE 40 MG TAB PO SCH (11:21)
[2018-04-11] MEDS: ZINC SULFATE 220mg CAP or TAB PO SCH (11:22)
[2018-04-11] MEDS: PRENATAL VITAMIN TAB PO SCH (11:23)
[2018-04-11] MEDS: LETROZOLE 2.5MG TAB PO SCH (11:23)
[2018-04-11] MEDS: BYSTOLIC 5 MG PO SCH (11:23)
[2018-04-11] MEDS: TURMERIC 500 MG PO SCH (11:23)
[2018-04-11] MEDS: LOSARTAN POTASSIUM 25 MG TAB PO SCH (11:25)
[2018-04-11 14:30] VITALS: BP 120/76
[2018-04-11 16:44] VITALS: BP 120/62
[2018-04-11] MEDS: VANCOMYCIN 1GM/250ML 250 ML IV SCH (17:45)
[2018-04-11] MEDS: FAMOTIDINE 20 MG TAB PO SCH (21:53)
[2018-04-11] MEDS: ATORVASTATIN 20 MG TAB PO SCH (21:53)
[2018-04-11] MEDS: DONEPEZIL HYDROCHLORIDE 5 MG TAB PO SCH (21:54)
[2018-04-11 22:00] VITALS: BP 130/46
[2018-04-12] MEDS: SODIUM CHLOR 0.9% PF (SALINE LOCK) 10ML VIAL/SYR IV SCH ×3 (05:29→20:40)
[2018-04-12 05:30] VITALS: BP 126/47
[2018-04-12] MEDS: PIPERACILLIN-TAZOB 2.25GM 50 ML IV SCH ×4 (05:30→23:52)
[2018-04-12] MEDS: LEVOTHYROXINE SODIUM 100 MCG TAB PO SCH (05:30)
[2018-04-12] MEDS: InsuLIN REG 1unit/0.01ml Soln (100units/ml) SC SCH ×4 (06:26→20:47)
[2018-04-12] MEDS: ACCU-CHEK COMFORT CURVE STRIP VI SCH ×4 (06:27→20:40)
[2018-04-12] MEDS: HYDROcodone-ACET 5/325MG TAB PO PRN ×2 (06:35→21:00)
[2018-04-12] MEDS: Glucerna Carbsteady SHAKE Vanilla 8oz PO SCH ×3 (08:00→18:00)
[2018-04-12] MEDS: INSULIN 70/30 1unit/0.01ml Susp (100units/ml) SC SCH ×2 (08:31→18:39)
[2018-04-12 08:36] VITALS: BP 136/55
[2018-04-12 09:44] LABS: Red Cell Distribution Width 14.4 % (11.8-14.3)
[2018-04-12 09:46] LABS: Hematocrit 32.7 % (36.0-46.0); Hemoglobin 10.5 g/dL (12.2-16.2); Mean Corpuscular Hemoglobin 28.7 pg (28.0-32.0); Mean Corpuscular Hgb Conc. 32.2 g/dL (32.0-36.0); Mean Corpuscular Volume 89.1 fL (80.0-100.0); Platelet Count (auto) 434 10^3/uL (140-450); Red Blood Cells 3.67 10^6/uL (4.0-5.20); White Blood Cell 17.4 10^3/uL (4.4-10.8)
[2018-04-12] MEDS: ZINC SULFATE 220mg CAP or TAB PO SCH (09:56)
[2018-04-12] MEDS: ASPirin-EC 81 mg tab PO SCH (09:57)
[2018-04-12] MEDS: ASCORBIC ACID 500 MG TAB PO SCH ×2 (09:57→20:39)
[2018-04-12] MEDS: OXYBUTYNIN CHL 5 MG TAB PO SCH (09:57)
[2018-04-12] MEDS: MULTIPLE VITAMIN TAB PO SCH (09:57)
[2018-04-12] MEDS: CLOPIDOGREL BISULFATE 75 MG TAB PO SCH (09:57)
[2018-04-12] MEDS: PANTOPRAZOLE 40 MG TAB PO SCH (09:57)
[2018-04-12] MEDS: LOSARTAN POTASSIUM 25 MG TAB PO SCH (09:57)
[2018-04-12] MEDS: TURMERIC 500 MG PO SCH (09:58)
[2018-04-12] MEDS: LETROZOLE 2.5MG TAB PO SCH (09:58)
[2018-04-12] MEDS: PRENATAL VITAMIN TAB PO SCH (09:58)
[2018-04-12] MEDS: BYSTOLIC 5 MG PO SCH (09:59)
[2018-04-12 10:02] LABS: Band Neutrophils % (manual) 0; Basophils % (manual) 0 (0.0-2.0); Blast Cells 0; Eosinophils % (manual) 0 (0-7); Myelocytes % 0; Promyelocytes % 0; Reactive Lymphocytes 0
[2018-04-12 10:09] LABS: Lymphocytes % (manual) 19 (10.0-50.0); Metamyelocytes % 1; Monocytes % (manual) 6 (0-12)
[2018-04-12] MEDS ORDERED: ENOXAPARIN SOD 40 MG/0.4 ML SYRINGE SC ONE (11:00)
[2018-04-12 12:26] VITALS: BP 155/73
[2018-04-12] MEDS: MORPHINE SULFATE 4 MG/ML SYR/VIAL IV PRN (16:27)
[2018-04-12 16:41] VITALS: BP 164/82
[2018-04-12] MEDS: Pro-Stat SF 30ml Vanilla PO SCH (18:00)
[2018-04-12] MEDS: FAMOTIDINE 20 MG TAB PO SCH (20:38)
[2018-04-12] MEDS: ATORVASTATIN 20 MG TAB PO SCH (20:39)
[2018-04-12] MEDS: DONEPEZIL HYDROCHLORIDE 5 MG TAB PO SCH (20:39)
[2018-04-12 22:00] VITALS: BP 137/49
[2018-04-13] MEDS: HYDROcodone-ACET 5/325MG TAB PO PRN ×3 (02:10→20:35)
[2018-04-13] MEDS: LEVOTHYROXINE SODIUM 100 MCG TAB PO SCH (05:27)
[2018-04-13] MEDS: SODIUM CHLOR 0.9% PF (SALINE LOCK) 10ML VIAL/SYR IV SCH ×3 (05:27→21:47)
[2018-04-13] MEDS: PIPERACILLIN-TAZOB 2.25GM 50 ML IV SCH (05:27)
[2018-04-13 05:30] VITALS: BP 127/56
[2018-04-13] MEDS: ACCU-CHEK COMFORT CURVE STRIP VI SCH ×4 (06:02→22:25)
[2018-04-13] MEDS: InsuLIN REG 1unit/0.01ml Soln (100units/ml) SC SCH ×4 (06:03→22:00)
[2018-04-13] MEDS: INSULIN 70/30 1unit/0.01ml Susp (100units/ml) SC SCH ×2 (08:14→18:20)
[2018-04-13] MEDS: Glucerna Carbsteady SHAKE Vanilla 8oz PO SCH ×3 (08:15→18:00)
[2018-04-13] MEDS: Pro-Stat SF 30ml Vanilla PO SCH ×2 (08:15→18:00)
[2018-04-13 08:28] LABS: Potassium 4.3 mmol/L (3.5-5.1)
[2018-04-13 08:29] LABS: Hematocrit 30.1 % (36.0-46.0); Hemoglobin 9.9 g/dL (12.2-16.2); Mean Corpuscular Hemoglobin 29.2 pg (28.0-32.0); Mean Corpuscular Hgb Conc. 32.8 g/dL (32.0-36.0); Mean Corpuscular Volume 89.1 fL (80.0-100.0); Platelet Count (auto) 399 10^3/uL (140-450); Red Blood Cells 3.38 10^6/uL (4.0-5.20); Red Cell Distribution Width 14.3 % (11.8-14.3); White Blood Cell 14.6 10^3/uL (4.4-10.8)
[2018-04-13 08:31] LABS: BUN/Creatinine Ratio 18.2; Calcium 8.6 mg/dL (8.5-10.1)
[2018-04-13 08:38] LABS: Basophils % (manual) 0 (0.0-2.0); Blast Cells 0; Promyelocytes % 0; Reactive Lymphocytes 0
[2018-04-13 08:43] VITALS: BP 114/47
[2018-04-13 09:58] LABS: Band Neutrophils % (manual) 5; Eosinophils % (manual) 1 (0-7); Lymphocytes % (manual) 14 (10.0-50.0); Metamyelocytes % 2; Monocytes % (manual) 8 (0-12); Myelocytes % 2
[2018-04-13] MEDS: TURMERIC 500 MG PO SCH (10:00)
[2018-04-13] MEDS: LOSARTAN POTASSIUM 25 MG TAB PO SCH (10:00)
[2018-04-13] MEDS: PRENATAL VITAMIN TAB PO SCH (10:00)
[2018-04-13] MEDS: BYSTOLIC 5 MG PO SCH (10:16)
[2018-04-13] MEDS: LETROZOLE 2.5MG TAB PO SCH (10:16)
[2018-04-13] MEDS: PANTOPRAZOLE 40 MG TAB PO SCH (10:19)
[2018-04-13] MEDS: CLOPIDOGREL BISULFATE 75 MG TAB PO SCH (10:19)
[2018-04-13] MEDS: OXYBUTYNIN CHL 5 MG TAB PO SCH (10:19)
[2018-04-13] MEDS: ZINC SULFATE 220mg CAP or TAB PO SCH (10:19)
[2018-04-13] MEDS: MULTIPLE VITAMIN TAB PO SCH (10:19)
[2018-04-13] MEDS: ASCORBIC ACID 500 MG TAB PO SCH ×2 (10:19→21:47)
[2018-04-13] MEDS: ENOXAPARIN SOD 40 MG/0.4 ML SYRINGE SC SCH (10:19)
[2018-04-13] MEDS: ASPirin-EC 81 mg tab PO SCH (10:19)
[2018-04-13] MEDS: MORPHINE SULFATE 4 MG/ML SYR/VIAL IV PRN (11:25)
[2018-04-13] MEDS ORDERED: VANCOMYCIN 1GM/250ML 250 ML IV SCH (12:00)
[2018-04-13 12:48] VITALS: BP 157/66
[2018-04-13 17:21] VITALS: BP 140/72
[2018-04-13] MEDS: VANCOMYCIN 1GM/250ML 250 ML IV SCH (18:20)
[2018-04-13] MEDS: FAMOTIDINE 20 MG TAB PO SCH (21:47)
[2018-04-13] MEDS: DONEPEZIL HYDROCHLORIDE 5 MG TAB PO SCH (21:47)
[2018-04-13] MEDS: ATORVASTATIN 20 MG TAB PO SCH (21:47)
[2018-04-13 21:52] VITALS: BP 153/73
[2018-04-14 04:53] VITALS: BP 134/69
[2018-04-14 06:16] LABS: Hemoglobin 9.8 g/dL (12.2-16.2); Mean Corpuscular Volume 89.3 fL (80.0-100.0)
[2018-04-14 06:18] LABS: Hematocrit 29.8 % (36.0-46.0); Mean Corpuscular Hemoglobin 29.4 pg (28.0-32.0); Mean Corpuscular Hgb Conc. 32.9 g/dL (32.0-36.0); Platelet Count (auto) 452 10^3/uL (140-450); Red Blood Cells 3.34 10^6/uL (4.0-5.20); Red Cell Distribution Width 14.3 % (11.8-14.3)
[2018-04-14 06:24] LABS: Basophils % (manual) 0 (0.0-2.0); Blast Cells 0; Myelocytes % 0; Promyelocytes % 0; Reactive Lymphocytes 0
[2018-04-14 06:31] LABS: Calcium 8.8 mg/dL (8.5-10.1)
[2018-04-14 06:33] LABS: BUN/Creatinine Ratio 18.5
[2018-04-14] MEDS: SODIUM CHLOR 0.9% PF (SALINE LOCK) 10ML VIAL/SYR IV SCH ×4 (06:41→21:33)
[2018-04-14] MEDS: LEVOTHYROXINE SODIUM 100 MCG TAB PO SCH (06:42)
[2018-04-14] MEDS: InsuLIN REG 1unit/0.01ml Soln (100units/ml) SC SCH ×4 (06:42→21:51)
[2018-04-14] MEDS: ACCU-CHEK COMFORT CURVE STRIP VI SCH ×4 (06:42→21:50)
[2018-04-14 06:49] LABS: Band Neutrophils % (manual) 3
[2018-04-14 06:50] LABS: Eosinophils % (manual) 2 (0-7); Lymphocytes % (manual) 20 (10.0-50.0); Metamyelocytes % 2; Monocytes % (manual) 6 (0-12)
[2018-04-14] MEDS: HYDROcodone-ACET 5/325MG TAB PO PRN ×3 (06:55→20:35)
[2018-04-14] MEDS: Pro-Stat SF 30ml Vanilla PO SCH ×2 (08:00→17:04)
[2018-04-14] MEDS: Glucerna Carbsteady SHAKE Vanilla 8oz PO SCH ×3 (08:00→17:04)
[2018-04-14] MEDS: INSULIN 70/30 1unit/0.01ml Susp (100units/ml) SC SCH ×2 (08:21→17:04)
[2018-04-14 09:00] VITALS: BP 155/72
[2018-04-14] MEDS: LETROZOLE 2.5MG TAB PO SCH (09:22)
[2018-04-14] MEDS: CLOPIDOGREL BISULFATE 75 MG TAB PO SCH (09:23)
[2018-04-14] MEDS: BYSTOLIC 5 MG PO SCH (09:23)
[2018-04-14] MEDS: PANTOPRAZOLE 40 MG TAB PO SCH (09:23)
[2018-04-14] MEDS: ZINC SULFATE 220mg CAP or TAB PO SCH (09:23)
[2018-04-14] MEDS: OXYBUTYNIN CHL 5 MG TAB PO SCH (09:23)
[2018-04-14] MEDS: MULTIPLE VITAMIN TAB PO SCH (09:24)
[2018-04-14] MEDS: LOSARTAN POTASSIUM 25 MG TAB PO SCH (09:24)
[2018-04-14] MEDS: ASCORBIC ACID 500 MG TAB PO SCH ×2 (09:24→21:33)
[2018-04-14] MEDS: ASPirin-EC 81 mg tab PO SCH (09:25)
[2018-04-14] MEDS: TURMERIC 500 MG PO SCH (09:25)
[2018-04-14] MEDS: ENOXAPARIN SOD 40 MG/0.4 ML SYRINGE SC SCH (09:25)
[2018-04-14] MEDS: PRENATAL VITAMIN TAB PO SCH (09:25)
[2018-04-14] MEDS ORDERED: LIDOCAINE 1% (LOCAL ANESTH.) PF 5ml SDV ID ONE (11:45)
[2018-04-14] MEDS: VANCOMYCIN 1GM/250ML 250 ML IV SCH (11:51)
[2018-04-14 13:29] VITALS: BP 154/66
[2018-04-14 16:54] VITALS: BP 159/74
[2018-04-14] MEDS: ATORVASTATIN 20 MG TAB PO SCH (21:32)
[2018-04-14] MEDS: DONEPEZIL HYDROCHLORIDE 5 MG TAB PO SCH (21:32)
[2018-04-14] MEDS: FAMOTIDINE 20 MG TAB PO SCH (21:33)
[2018-04-14 21:34] VITALS: BP 166/64
[2018-04-15 04:40] VITALS: BP 141/90
[2018-04-15] MEDS: SODIUM CHLOR 0.9% PF (SALINE LOCK) 10ML VIAL/SYR IV SCH ×5 (06:00→21:13)
[2018-04-15 06:01] LABS: Hematocrit 31.2 % (36.0-46.0); Hemoglobin 10.4 g/dL (12.2-16.2); Mean Corpuscular Hemoglobin 29.2 pg (28.0-32.0); Mean Corpuscular Hgb Conc. 33.2 g/dL (32.0-36.0); Platelet Count (auto) 494 10^3/uL (140-450); Red Blood Cells 3.55 10^6/uL (4.0-5.20); Red Cell Distribution Width 14.2 % (11.8-14.3); White Blood Cell 15.2 10^3/uL (4.4-10.8)
[2018-04-15 06:05] LABS: Basophils % (manual) 0 (0.0-2.0); Blast Cells 0; Metamyelocytes % 0; Myelocytes % 0; Promyelocytes % 0; Reactive Lymphocytes 0
[2018-04-15 06:15] LABS: BUN/Creatinine Ratio 18.1; Calcium 8.9 mg/dL (8.5-10.1); Potassium 4.2 mmol/L (3.5-5.1)
[2018-04-15] MEDS: ACCU-CHEK COMFORT CURVE STRIP VI SCH ×4 (06:29→21:18)
[2018-04-15] MEDS: LEVOTHYROXINE SODIUM 100 MCG TAB PO SCH (06:29)
[2018-04-15] MEDS: InsuLIN REG 1unit/0.01ml Soln (100units/ml) SC SCH ×4 (06:30→21:18)
[2018-04-15] MEDS: VANCOMYCIN 1GM/250ML 250 ML IV SCH ×2 (07:01→21:00)
[2018-04-15 07:50] LABS: Band Neutrophils % (manual) 1; Eosinophils % (manual) 2 (0-7); Lymphocytes % (manual) 16 (10.0-50.0); Monocytes % (manual) 8 (0-12)
[2018-04-15] MEDS: Pro-Stat SF 30ml Vanilla PO SCH ×2 (08:00→18:00)
[2018-04-15] MEDS: Glucerna Carbsteady SHAKE Vanilla 8oz PO SCH ×3 (08:00→18:00)
[2018-04-15] MEDS: INSULIN 70/30 1unit/0.01ml Susp (100units/ml) SC SCH ×2 (08:00→17:15)
[2018-04-15] MEDS: LOSARTAN POTASSIUM 25 MG TAB PO SCH (08:30)
[2018-04-15 08:55] VITALS: BP 195/81
[2018-04-15] MEDS: ENOXAPARIN SOD 40 MG/0.4 ML SYRINGE SC SCH (09:41)
[2018-04-15] MEDS: MORPHINE SULFATE 4 MG/ML SYR/VIAL IV PRN ×2 (09:41→15:18)
[2018-04-15] MEDS: ASPirin-EC 81 mg tab PO SCH (09:44)
[2018-04-15] MEDS: ZINC SULFATE 220mg CAP or TAB PO SCH (09:44)
[2018-04-15] MEDS: ASCORBIC ACID 500 MG TAB PO SCH ×2 (09:44→21:12)
[2018-04-15] MEDS: CLOPIDOGREL BISULFATE 75 MG TAB PO SCH (09:45)
[2018-04-15] MEDS: OXYBUTYNIN CHL 5 MG TAB PO SCH (09:45)
[2018-04-15] MEDS: PANTOPRAZOLE 40 MG TAB PO SCH (09:45)
[2018-04-15] MEDS: MULTIPLE VITAMIN TAB PO SCH (09:45)
[2018-04-15] MEDS: LETROZOLE 2.5MG TAB PO SCH ×2 (09:50→14:50)
[2018-04-15] MEDS: TURMERIC 500 MG PO SCH (09:50)
[2018-04-15] MEDS: BYSTOLIC 5 MG PO SCH ×2 (09:50→14:50)
[2018-04-15] MEDS: PRENATAL VITAMIN TAB PO SCH (10:03)
[2018-04-15 10:10] VITALS: BP 192/142
[2018-04-15] MEDS: cloNIDine HCL 0.1 MG TAB PO PRN (11:49)
[2018-04-15 13:00] VITALS: BP 166/105
[2018-04-15 17:08] VITALS: BP 151/80
[2018-04-15] MEDS: ATORVASTATIN 20 MG TAB PO SCH (21:13)
[2018-04-15] MEDS: FAMOTIDINE 20 MG TAB PO SCH (21:13)
[2018-04-15] MEDS: DONEPEZIL HYDROCHLORIDE 5 MG TAB PO SCH (21:13)
[2018-04-15 22:00] VITALS: BP 155/57
[2018-04-15] MEDS: HYDROcodone-ACET 5/325MG TAB PO PRN (23:11)
[2018-04-16 05:27] VITALS: BP 172/59
[2018-04-16] MEDS: SODIUM CHLOR 0.9% PF (SALINE LOCK) 10ML VIAL/SYR IV SCH ×5 (06:20→22:01)
[2018-04-16] MEDS: LEVOTHYROXINE SODIUM 100 MCG TAB PO SCH (06:20)
[2018-04-16] MEDS: cloNIDine HCL 0.1 MG TAB PO PRN (06:21)
[2018-04-16] MEDS: ACCU-CHEK COMFORT CURVE STRIP VI SCH ×4 (06:43→22:01)
[2018-04-16] MEDS: InsuLIN REG 1unit/0.01ml Soln (100units/ml) SC SCH ×4 (06:43→22:00)
[2018-04-16] MEDS: HYDROcodone-ACET 5/325MG TAB PO PRN ×3 (06:55→18:56)
[2018-04-16] MEDS: Pro-Stat SF 30ml Vanilla PO SCH ×2 (08:00→18:00)
[2018-04-16 08:38] VITALS: BP 114/44
[2018-04-16] MEDS: Glucerna Carbsteady SHAKE Vanilla 8oz PO SCH ×3 (09:31→18:51)
[2018-04-16] MEDS: BYSTOLIC 5 MG PO SCH (09:52)
[2018-04-16] MEDS: ENOXAPARIN SOD 40 MG/0.4 ML SYRINGE SC SCH (09:53)
[2018-04-16] MEDS: ZINC SULFATE 220mg CAP or TAB PO SCH (09:53)
[2018-04-16] MEDS: PRENATAL VITAMIN TAB PO SCH (09:53)
[2018-04-16] MEDS: MULTIPLE VITAMIN TAB PO SCH (09:53)
[2018-04-16] MEDS: LETROZOLE 2.5MG TAB PO SCH (09:53)
[2018-04-16] MEDS: PANTOPRAZOLE 40 MG TAB PO SCH (09:54)
[2018-04-16] MEDS: ASCORBIC ACID 500 MG TAB PO SCH ×2 (09:54→22:01)
[2018-04-16] MEDS: CLOPIDOGREL BISULFATE 75 MG TAB PO SCH (09:54)
[2018-04-16] MEDS: ASPirin-EC 81 mg tab PO SCH (09:54)
[2018-04-16] MEDS: LOSARTAN POTASSIUM 25 MG TAB PO SCH (09:54)
[2018-04-16] MEDS: OXYBUTYNIN CHL 5 MG TAB PO SCH (09:55)
[2018-04-16] MEDS: TURMERIC 500 MG PO SCH (10:00)
[2018-04-16] MEDS: INSULIN 70/30 1unit/0.01ml Susp (100units/ml) SC SCH ×2 (10:03→18:51)
[2018-04-16] MEDS ORDERED: FUROSEMIDE 40 MG/4 ML VIAL IV ONE (11:15)
[2018-04-16] MEDS: VANCOMYCIN 1GM/250ML 250 ML IV SCH (11:27)
[2018-04-16 13:00] VITALS: BP 141/53
[2018-04-16 17:00] VITALS: BP 140/54
[2018-04-16] MEDS: MORPHINE SULFATE 4 MG/ML SYR/VIAL IV PRN (20:34)
[2018-04-16 22:00] VITALS: BP 126/41
[2018-04-16] MEDS: ACETAMINOPHEN 325 MG TAB PO PRN (22:00)
[2018-04-16] MEDS ORDERED: FLUCONAZOLE 100 MG TAB PO ONE (22:00)
[2018-04-16] MEDS: TEMAZEPAM 15 MG CAP PO PRN (22:00)
[2018-04-16] MEDS: DONEPEZIL HYDROCHLORIDE 5 MG TAB PO SCH (22:01)
[2018-04-16] MEDS: ATORVASTATIN 20 MG TAB PO SCH (22:01)
[2018-04-16] MEDS: FAMOTIDINE 20 MG TAB PO SCH (22:01)
[2018-04-16 22:25] LABS: Urine Bacteria FEW /hpf (None Seen); Urine Blood Negative /uL (Negative); Urine Mucus FEW (None Seen); Urine Specific Gravity 1.007 (1.001-1.035); Urine WBC 2 /hpf (0 - 5)
[2018-04-17] MEDS: VANCOMYCIN 1GM/250ML 250 ML IV SCH ×2 (00:50→15:00)
[2018-04-17 05:00] VITALS: BP 155/62
[2018-04-17] MEDS: SODIUM CHLOR 0.9% PF (SALINE LOCK) 10ML VIAL/SYR IV SCH ×5 (06:00→22:11)
[2018-04-17] MEDS: InsuLIN REG 1unit/0.01ml Soln (100units/ml) SC SCH ×4 (06:45→22:00)
[2018-04-17] MEDS: ACCU-CHEK COMFORT CURVE STRIP VI SCH ×4 (06:45→22:11)
[2018-04-17] MEDS: LEVOTHYROXINE SODIUM 100 MCG TAB PO SCH (06:45)
[2018-04-17] MEDS: Pro-Stat SF 30ml Vanilla PO SCH ×2 (08:00→18:00)
[2018-04-17] MEDS: Glucerna Carbsteady SHAKE Vanilla 8oz PO SCH ×3 (08:00→18:00)
[2018-04-17] MEDS: INSULIN 70/30 1unit/0.01ml Susp (100units/ml) SC SCH ×2 (08:18→19:05)
[2018-04-17] MEDS: HYDROcodone-ACET 5/325MG TAB PO PRN ×3 (08:35→20:08)
[2018-04-17 08:48] VITALS: BP 139/65
[2018-04-17] MEDS: TURMERIC 500 MG PO SCH (10:00)
[2018-04-17] MEDS: BYSTOLIC 5 MG PO SCH (10:03)
[2018-04-17] MEDS: ENOXAPARIN SOD 40 MG/0.4 ML SYRINGE SC SCH (10:03)
[2018-04-17] MEDS: FLUCONAZOLE 100 MG TAB PO SCH (10:04)
[2018-04-17] MEDS: MULTIPLE VITAMIN TAB PO SCH (10:05)
[2018-04-17] MEDS: ASPirin-EC 81 mg tab PO SCH (10:05)
[2018-04-17] MEDS: ZINC SULFATE 220mg CAP or TAB PO SCH (10:05)
[2018-04-17] MEDS: LOSARTAN POTASSIUM 25 MG TAB PO SCH (10:05)
[2018-04-17] MEDS: OXYBUTYNIN CHL 5 MG TAB PO SCH (10:05)
[2018-04-17] MEDS: ASCORBIC ACID 500 MG TAB PO SCH ×2 (10:05→22:11)
[2018-04-17] MEDS: CLOPIDOGREL BISULFATE 75 MG TAB PO SCH (10:05)
[2018-04-17] MEDS: LETROZOLE 2.5MG TAB PO SCH (10:06)
[2018-04-17] MEDS: PANTOPRAZOLE 40 MG TAB PO SCH (10:22)
[2018-04-17] MEDS: PRENATAL VITAMIN TAB PO SCH (10:22)
[2018-04-17 12:23] LABS: Hemoglobin 8.7 g/dL (12.2-16.2); Mean Corpuscular Hemoglobin 28.4 pg (28.0-32.0); Mean Corpuscular Hgb Conc. 32.2 g/dL (32.0-36.0); Mean Corpuscular Volume 88.2 fL (80.0-100.0); Platelet Count (auto) 496 10^3/uL (140-450); Red Blood Cells 3.06 10^6/uL (4.0-5.20); Red Cell Distribution Width 14.4 % (11.8-14.3); White Blood Cell 17.6 10^3/uL (4.4-10.8)
[2018-04-17 12:29] LABS: Basophils % (manual) 0 (0.0-2.0); Blast Cells 0; Promyelocytes % 0; Reactive Lymphocytes 0
[2018-04-17 12:39] LABS: Albumin 1.4 g/dL (3.4-5.0); Calcium 8.5 mg/dL (8.5-10.1); Potassium 3.7 mmol/L (3.5-5.1)
[2018-04-17 12:43] LABS: BUN/Creatinine Ratio 22.2; Bilirubin, Total 0.2 mg/dL (0.2-1.0); Total Protein 5.3 g/dL (6.4-8.2)
[2018-04-17 12:54] VITALS: BP 149/73
[2018-04-17 14:22] LABS: Band Neutrophils % (manual) 1; Eosinophils % (manual) 1 (0-7); Lymphocytes % (manual) 10 (10.0-50.0); Metamyelocytes % 2; Monocytes % (manual) 4 (0-12); Myelocytes % 2
[2018-04-17 17:03] VITALS: BP 109/79
[2018-04-17 22:00] VITALS: BP 134/79
[2018-04-17] MEDS: ATORVASTATIN 20 MG TAB PO SCH (22:11)
[2018-04-17] MEDS: DONEPEZIL HYDROCHLORIDE 5 MG TAB PO SCH (22:11)
[2018-04-17] MEDS: FAMOTIDINE 20 MG TAB PO SCH (22:11)
[2018-04-17] MEDS: MORPHINE SULFATE 4 MG/ML SYR/VIAL IV PRN (22:12)
[2018-04-18] MEDS: SODIUM CHLOR 0.9% PF (SALINE LOCK) 10ML VIAL/SYR IV SCH ×5 (04:54→22:00)
[2018-04-18] MEDS: VANCOMYCIN 1GM/250ML 250 ML IV SCH ×2 (04:54→23:00)
[2018-04-18 05:00] VITALS: BP 126/67
[2018-04-18] MEDS: LEVOTHYROXINE SODIUM 100 MCG TAB PO SCH (06:16)
[2018-04-18] MEDS: ACCU-CHEK COMFORT CURVE STRIP VI SCH ×4 (06:49→22:00)
[2018-04-18] MEDS: InsuLIN REG 1unit/0.01ml Soln (100units/ml) SC SCH ×4 (06:49→22:10)
[2018-04-18 07:30] LABS: Calcium 8.5 mg/dL (8.5-10.1); Potassium 4.2 mmol/L (3.5-5.1)
[2018-04-18 07:31] LABS: Red Cell Distribution Width 14.3 % (11.8-14.3)
[2018-04-18 07:33] LABS: Hematocrit 28.8 % (36.0-46.0); Hemoglobin 9.3 g/dL (12.2-16.2); Mean Corpuscular Hemoglobin 28.6 pg (28.0-32.0); Mean Corpuscular Hgb Conc. 32.4 g/dL (32.0-36.0); Mean Corpuscular Volume 88.3 fL (80.0-100.0); Platelet Count (auto) 503 10^3/uL (140-450); Red Blood Cells 3.26 10^6/uL (4.0-5.20); White Blood Cell 15.9 10^3/uL (4.4-10.8)
[2018-04-18 07:38] LABS: Basophils % (manual) 0 (0.0-2.0); Blast Cells 0; Myelocytes % 0; Promyelocytes % 0; Reactive Lymphocytes 0
[2018-04-18] MEDS: INSULIN 70/30 1unit/0.01ml Susp (100units/ml) SC SCH ×2 (08:00→17:30)
[2018-04-18] MEDS: Pro-Stat SF 30ml Vanilla PO SCH ×2 (08:00→18:21)
[2018-04-18] MEDS: Glucerna Carbsteady SHAKE Vanilla 8oz PO SCH ×3 (08:00→18:21)
[2018-04-18 08:51] VITALS: BP 136/47
[2018-04-18] MEDS: TURMERIC 500 MG PO SCH (10:00)
[2018-04-18] MEDS: PRENATAL VITAMIN TAB PO SCH (10:00)
[2018-04-18 10:56] LABS: Band Neutrophils % (manual) 1; Eosinophils % (manual) 2 (0-7); Lymphocytes % (manual) 17 (10.0-50.0); Metamyelocytes % 1; Monocytes % (manual) 4 (0-12)
[2018-04-18] MEDS: LETROZOLE 2.5MG TAB PO SCH (11:15)
[2018-04-18] MEDS: BYSTOLIC 5 MG PO SCH (11:15)
[2018-04-18] MEDS: MULTIPLE VITAMIN TAB PO SCH (11:16)
[2018-04-18] MEDS: HYDROcodone-ACET 5/325MG TAB PO PRN ×3 (11:17→22:15)
[2018-04-18] MEDS: PANTOPRAZOLE 40 MG TAB PO SCH (11:18)
[2018-04-18] MEDS: ZINC SULFATE 220mg CAP or TAB PO SCH (11:18)
[2018-04-18] MEDS: ASCORBIC ACID 500 MG TAB PO SCH ×2 (11:18→22:10)
[2018-04-18] MEDS: OXYBUTYNIN CHL 5 MG TAB PO SCH (11:18)
[2018-04-18] MEDS: CLOPIDOGREL BISULFATE 75 MG TAB PO SCH (11:18)
[2018-04-18] MEDS: ASPirin-EC 81 mg tab PO SCH (11:18)
[2018-04-18] MEDS: FLUCONAZOLE 100 MG TAB PO SCH (11:19)
[2018-04-18] MEDS: LOSARTAN POTASSIUM 25 MG TAB PO SCH (11:19)
[2018-04-18] MEDS: ENOXAPARIN SOD 40 MG/0.4 ML SYRINGE SC SCH (11:20)
[2018-04-18 12:33] VITALS: BP 120/65
[2018-04-18 17:15] VITALS: BP 148/44
[2018-04-18] MEDS: DOCUSATE SOD 100 MG CAP PO PRN (17:30)
[2018-04-18 22:00] VITALS: BP 157/69
[2018-04-18] MEDS: DONEPEZIL HYDROCHLORIDE 5 MG TAB PO SCH (22:00)
[2018-04-18] MEDS: ATORVASTATIN 20 MG TAB PO SCH (22:10)
[2018-04-18] MEDS: FAMOTIDINE 20 MG TAB PO SCH (22:10)
[2018-04-19 05:01] VITALS: BP 153/70
[2018-04-19] MEDS: SODIUM CHLOR 0.9% PF (SALINE LOCK) 10ML VIAL/SYR IV SCH ×5 (06:00→22:00)
[2018-04-19] MEDS: ACCU-CHEK COMFORT CURVE STRIP VI SCH ×4 (06:42→22:00)
[2018-04-19] MEDS: LEVOTHYROXINE SODIUM 100 MCG TAB PO SCH (06:42)
[2018-04-19] MEDS: InsuLIN REG 1unit/0.01ml Soln (100units/ml) SC SCH ×4 (06:43→22:00)
[2018-04-19 07:53] LABS: Hematocrit 29.1 % (36.0-46.0); Hemoglobin 9.5 g/dL (12.2-16.2); Mean Corpuscular Hemoglobin 28.6 pg (28.0-32.0); Mean Corpuscular Hgb Conc. 32.7 g/dL (32.0-36.0); Mean Corpuscular Volume 87.7 fL (80.0-100.0); Platelet Count (auto) 551 10^3/uL (140-450); Red Blood Cells 3.32 10^6/uL (4.0-5.20); Red Cell Distribution Width 14.2 % (11.8-14.3); White Blood Cell 11.5 10^3/uL (4.4-10.8)
[2018-04-19 08:00] VITALS: BP 132/58
[2018-04-19] MEDS: Pro-Stat SF 30ml Vanilla PO SCH ×2 (08:00→18:24)
[2018-04-19] MEDS: Glucerna Carbsteady SHAKE Vanilla 8oz PO SCH ×3 (08:00→18:24)
[2018-04-19] MEDS: INSULIN 70/30 1unit/0.01ml Susp (100units/ml) SC SCH ×2 (08:00→17:30)
[2018-04-19 08:04] LABS: Band Neutrophils % (manual) 0; Basophils % (manual) 0 (0.0-2.0); Blast Cells 0; Myelocytes % 0; Promyelocytes % 0; Reactive Lymphocytes 0
[2018-04-19 08:11] LABS: Albumin 1.6 g/dL (3.4-5.0); Potassium 4.5 mmol/L (3.5-5.1)
[2018-04-19 08:15] LABS: BUN/Creatinine Ratio 20.5; Bilirubin, Total 0.3 mg/dL (0.2-1.0)
[2018-04-19] MEDS: MORPHINE SULFATE 4 MG/ML SYR/VIAL IV PRN (08:38)
[2018-04-19 08:51] LABS: Eosinophils % (manual) 1 (0-7); Lymphocytes % (manual) 24 (10.0-50.0); Metamyelocytes % 3; Monocytes % (manual) 12 (0-12)
[2018-04-19] MEDS: TURMERIC 500 MG PO SCH (10:00)
[2018-04-19] MEDS: PRENATAL VITAMIN TAB PO SCH (10:00)
[2018-04-19] MEDS: BYSTOLIC 5 MG PO SCH (10:31)
[2018-04-19] MEDS: LETROZOLE 2.5MG TAB PO SCH (10:32)
[2018-04-19] MEDS: ZINC SULFATE 220mg CAP or TAB PO SCH (10:33)
[2018-04-19] MEDS: CLOPIDOGREL BISULFATE 75 MG TAB PO SCH (10:34)
[2018-04-19] MEDS: LOSARTAN POTASSIUM 25 MG TAB PO SCH (10:34)
[2018-04-19] MEDS: FLUCONAZOLE 100 MG TAB PO SCH (10:34)
[2018-04-19] MEDS: ASPirin-EC 81 mg tab PO SCH (10:35)
[2018-04-19] MEDS: OXYBUTYNIN CHL 5 MG TAB PO SCH (10:35)
[2018-04-19] MEDS: PANTOPRAZOLE 40 MG TAB PO SCH (10:35)
[2018-04-19] MEDS: ENOXAPARIN SOD 40 MG/0.4 ML SYRINGE SC SCH (10:35)
[2018-04-19] MEDS: ASCORBIC ACID 500 MG TAB PO SCH ×2 (10:35→22:00)
[2018-04-19] MEDS: MULTIPLE VITAMIN TAB PO SCH (10:35)
[2018-04-19] MEDS: HYDROcodone-ACET 5/325MG TAB PO PRN (11:13)
[2018-04-19 12:38] VITALS: BP 147/69
[2018-04-19 16:37] VITALS: BP 124/51
[2018-04-19] MEDS: VANCOMYCIN 1GM/250ML 250 ML IV SCH (18:23)
[2018-04-19 22:00] VITALS: BP 144/90
[2018-04-19] MEDS: FAMOTIDINE 20 MG TAB PO SCH (22:00)
[2018-04-19] MEDS: ATORVASTATIN 20 MG TAB PO SCH (22:00)
[2018-04-19] MEDS: DONEPEZIL HYDROCHLORIDE 5 MG TAB PO SCH (22:00)
[2018-04-20 05:00] VITALS: BP 162/75
[2018-04-20] MEDS: LEVOTHYROXINE SODIUM 100 MCG TAB PO SCH (05:51)
[2018-04-20] MEDS: SODIUM CHLOR 0.9% PF (SALINE LOCK) 10ML VIAL/SYR IV SCH ×5 (05:51→21:09)
[2018-04-20] MEDS: InsuLIN REG 1unit/0.01ml Soln (100units/ml) SC SCH ×4 (05:53→21:10)
[2018-04-20] MEDS: ACCU-CHEK COMFORT CURVE STRIP VI SCH ×4 (05:54→21:10)
[2018-04-20] MEDS: INSULIN 70/30 1unit/0.01ml Susp (100units/ml) SC SCH ×2 (08:00→17:43)
[2018-04-20] MEDS: Pro-Stat SF 30ml Vanilla PO SCH ×2 (08:18→17:50)
[2018-04-20] MEDS: Glucerna Carbsteady SHAKE Vanilla 8oz PO SCH ×3 (08:18→17:50)
[2018-04-20 08:20] VITALS: BP 155/61
[2018-04-20] MEDS: FLUCONAZOLE 100 MG TAB PO SCH (10:00)
[2018-04-20] MEDS: TURMERIC 500 MG PO SCH (10:00)
[2018-04-20] MEDS: ASCORBIC ACID 500 MG TAB PO SCH ×2 (10:00→21:09)
[2018-04-20] MEDS: MULTIPLE VITAMIN TAB PO SCH (10:00)
[2018-04-20] MEDS: LOSARTAN POTASSIUM 25 MG TAB PO SCH (10:00)
[2018-04-20] MEDS: PANTOPRAZOLE 40 MG TAB PO SCH (10:00)
[2018-04-20] MEDS: ASPirin-EC 81 mg tab PO SCH (10:00)
[2018-04-20] MEDS: PRENATAL VITAMIN TAB PO SCH (10:00)
[2018-04-20] MEDS: BYSTOLIC 5 MG PO SCH (10:00)
[2018-04-20] MEDS: CLOPIDOGREL BISULFATE 75 MG TAB PO SCH (10:00)
[2018-04-20] MEDS: ENOXAPARIN SOD 40 MG/0.4 ML SYRINGE SC SCH (10:00)
[2018-04-20] MEDS: OXYBUTYNIN CHL 5 MG TAB PO SCH (10:00)
[2018-04-20] MEDS: LETROZOLE 2.5MG TAB PO SCH (10:29)
[2018-04-20] MEDS: ZINC SULFATE 220mg CAP or TAB PO SCH (10:35)
[2018-04-20] MEDS: VANCOMYCIN 1GM/250ML 250 ML IV SCH (11:00)
[2018-04-20 13:15] VITALS: BP 164/98
[2018-04-20] MEDS: HYDROcodone-ACET 5/325MG TAB PO PRN (13:25)
[2018-04-20 16:37] VITALS: BP 161/86
[2018-04-20 19:51] VITALS: BP 137/40
[2018-04-20] MEDS: ATORVASTATIN 20 MG TAB PO SCH (21:09)
[2018-04-20] MEDS: DONEPEZIL HYDROCHLORIDE 5 MG TAB PO SCH (21:09)
[2018-04-20] MEDS: FAMOTIDINE 20 MG TAB PO SCH (21:09)
[2018-04-21] VITALS (10 sets, daily range): BP systolic 123–192; BP diastolic 46–63
[2018-04-21] MEDS: VANCOMYCIN 1GM/250ML 250 ML IV SCH ×2 (05:23→22:16)
[2018-04-21] MEDS: SODIUM CHLOR 0.9% PF (SALINE LOCK) 10ML VIAL/SYR IV SCH ×3 (05:23→22:15)
[2018-04-21] MEDS: ACCU-CHEK COMFORT CURVE STRIP VI SCH ×4 (05:23→22:16)
[2018-04-21 06:08] LABS: Hematocrit 26.1 % (36.0-46.0); Hemoglobin 8.7 g/dL (12.2-16.2); Mean Corpuscular Hemoglobin 29.3 pg (28.0-32.0); Mean Corpuscular Hgb Conc. 33.3 g/dL (32.0-36.0); Mean Corpuscular Volume 88.2 fL (80.0-100.0); Platelet Count (auto) 456 10^3/uL (140-450); Red Blood Cells 2.96 10^6/uL (4.0-5.20); Red Cell Distribution Width 14.4 % (11.8-14.3); White Blood Cell 9.7 10^3/uL (4.4-10.8)
[2018-04-21 06:12] LABS: INR 1.11 (0.9-1.15); Partial Thromboplastin Time 31.7 sec (23.78-33.04); Prothrombin Time 11.8 sec (9.27-12.13)
[2018-04-21 06:17] LABS: Basophils % (manual) 0 (0.0-2.0); Blast Cells 0; Eosinophils % (manual) 0 (0-7); Myelocytes % 0; Promyelocytes % 0; Reactive Lymphocytes 0
[2018-04-21 06:21] LABS: Albumin 1.5 g/dL (3.4-5.0); BUN/Creatinine Ratio 18.8; Calcium 8.5 mg/dL (8.5-10.1); Potassium 3.9 mmol/L (3.5-5.1)
[2018-04-21 06:24] LABS: Bilirubin, Total 0.6 mg/dL (0.2-1.0); Total Protein 5.5 g/dL (6.4-8.2)
[2018-04-21 06:48] LABS: Band Neutrophils % (manual) 4; Lymphocytes % (manual) 19 (10.0-50.0); Monocytes % (manual) 10 (0-12)
[2018-04-21 06:49] LABS: Metamyelocytes % 2
[2018-04-21] MEDS: LEVOTHYROXINE SODIUM 100 MCG TAB PO SCH (06:59)
[2018-04-21] MEDS: InsuLIN REG 1unit/0.01ml Soln (100units/ml) SC SCH ×4 (06:59→22:16)
[2018-04-21] MEDS: Glucerna Carbsteady SHAKE Vanilla 8oz PO SCH ×3 (07:45→17:49)
[2018-04-21] MEDS: INSULIN 70/30 1unit/0.01ml Susp (100units/ml) SC SCH ×2 (07:45→17:30)
[2018-04-21] MEDS: Pro-Stat SF 30ml Vanilla PO SCH ×2 (07:45→17:49)
[2018-04-21] MEDS: cloNIDine HCL 0.1 MG TAB PO PRN ×2 (08:58→16:43)
[2018-04-21] MEDS: TURMERIC 500 MG PO SCH (10:00)
[2018-04-21] MEDS: CLOPIDOGREL BISULFATE 75 MG TAB PO SCH (10:00)
[2018-04-21] MEDS: ASPirin-EC 81 mg tab PO SCH (10:00)
[2018-04-21] MEDS: ENOXAPARIN SOD 40 MG/0.4 ML SYRINGE SC SCH (10:00)
[2018-04-21] MEDS: PRENATAL VITAMIN TAB PO SCH (10:00)
[2018-04-21] MEDS: FLUCONAZOLE 100 MG TAB PO SCH (10:35)
[2018-04-21] MEDS: ZINC SULFATE 220mg CAP or TAB PO SCH (10:35)
[2018-04-21] MEDS: PANTOPRAZOLE 40 MG TAB PO SCH (10:36)
[2018-04-21] MEDS: MULTIPLE VITAMIN TAB PO SCH (10:36)
[2018-04-21] MEDS: ASCORBIC ACID 500 MG TAB PO SCH ×2 (10:36→22:15)
[2018-04-21] MEDS: OXYBUTYNIN CHL 5 MG TAB PO SCH (10:36)
[2018-04-21] MEDS: LETROZOLE 2.5MG TAB PO SCH (10:36)
[2018-04-21] MEDS: LOSARTAN POTASSIUM 25 MG TAB PO SCH (10:38)
[2018-04-21] MEDS ORDERED: LIDOCAINE 2%HCL (LOCAL ANESTH.) INJ 20ML MDV ONE (14:47)
[2018-04-21] MEDS ORDERED: VANCOMYCIN HCL 1000 MG VL ONE (14:53)
[2018-04-21] MEDS ORDERED: fentaNYL CITRATE 100 MCG/2 ML VL ONE (14:53)
[2018-04-21] MEDS ORDERED: MIDAZOLAM HCL 1MG/1ML-2 ML VIAL ONE (14:53)
[2018-04-21] MEDS ORDERED: VANCOMYCIN 1GM/250ML 250 ML IV ONE (14:54)
[2018-04-21] MEDS ORDERED: ceFAZolin 1GM/50ML 50 ML IV ONE (15:05)
[2018-04-21] MEDS: ATORVASTATIN 20 MG TAB PO SCH (22:15)
[2018-04-21] MEDS: FAMOTIDINE 20 MG TAB PO SCH (22:15)
[2018-04-21] MEDS: DONEPEZIL HYDROCHLORIDE 5 MG TAB PO SCH (22:15)
[2018-04-22 05:00] VITALS: BP 120/87
[2018-04-22] MEDS: ACCU-CHEK COMFORT CURVE STRIP VI SCH ×3 (06:46→17:00)
[2018-04-22] MEDS: LEVOTHYROXINE SODIUM 100 MCG TAB PO SCH (06:46)
[2018-04-22] MEDS: InsuLIN REG 1unit/0.01ml Soln (100units/ml) SC SCH ×3 (06:47→17:00)
[2018-04-22 08:56] VITALS: BP_SYST 156; BP_SYST 178; BP_DIAS 48; BP_DIAS 53
[2018-04-22] MEDS: Glucerna Carbsteady SHAKE Vanilla 8oz PO SCH ×2 (09:18→12:27)
[2018-04-22] MEDS: SODIUM CHLOR 0.9% PF (SALINE LOCK) 10ML VIAL/SYR IV SCH (09:18)
[2018-04-22] MEDS: INSULIN 70/30 1unit/0.01ml Susp (100units/ml) SC SCH ×2 (09:18→17:30)
[2018-04-22] MEDS: Pro-Stat SF 30ml Vanilla PO SCH (09:19)
[2018-04-22] MEDS: PRENATAL VITAMIN TAB PO SCH (09:48)
[2018-04-22] MEDS: CLOPIDOGREL BISULFATE 75 MG TAB PO SCH (09:51)
[2018-04-22] MEDS: LOSARTAN POTASSIUM 25 MG TAB PO SCH (09:58)
[2018-04-22] MEDS: LETROZOLE 2.5MG TAB PO SCH (10:00)
[2018-04-22] MEDS: TURMERIC 500 MG PO SCH (10:00)
[2018-04-22] MEDS: PANTOPRAZOLE 40 MG TAB PO SCH (10:01)
[2018-04-22] MEDS: ASPirin-EC 81 mg tab PO SCH (10:02)
[2018-04-22] MEDS: ZINC SULFATE 220mg CAP or TAB PO SCH (10:06)
[2018-04-22] MEDS: MULTIPLE VITAMIN TAB PO SCH (10:07)
[2018-04-22] MEDS: ASCORBIC ACID 500 MG TAB PO SCH (10:09)
[2018-04-22] MEDS: ENOXAPARIN SOD 40 MG/0.4 ML SYRINGE SC SCH (10:16)
[2018-04-22] MEDS: FLUCONAZOLE 100 MG TAB PO SCH (10:27)
[2018-04-22] MEDS: OXYBUTYNIN CHL 5 MG TAB PO SCH (10:28)
[2018-04-22] MEDS: ACETAMINOPHEN 325 MG TAB PO PRN (12:25)
[2018-04-22] MEDS: DOCUSATE SOD 100 MG CAP PO PRN (12:25)
[2018-04-22 13:00] VITALS: BP 156/48
[2018-04-22] MEDS ORDERED: HYDROcodone-ACET 10/325MG TAB PO PRN (14:45)
[2018-04-22] MEDS: VANCOMYCIN 1GM/250ML 250 ML IV SCH (17:00)
[2018-04-22 17:02] VITALS: BP 156/48
== END 2018-04-22 17:35 | disposition home or self-care (01) | DRG 856 ==
LOC: ER 12:48 → TELE 12:49 → TELE-WESTW 20:47 → WEST WING 04-13 10:49 → DOU IN ICU 04-20 18:32 → TELE-EAST 04-21 23:55
PROVIDERS: ADMIT Internal Medicine; ATTEND Internal Medicine Cardiovascular Disease
PROC: 0JD60ZZ Extraction of Chest Subcutaneous Tissue and Fascia, Open Approach (ICD-10-PCS; 2018-04-09)
PROC: 02HV33Z Insertion of Infusion Device into Superior Vena Cava, Percutaneous Approach (ICD-10-PCS; 2018-04-14)
PROC: 0JH606Z Insertion of Pacemaker, Dual Chamber into Chest Subcutaneous Tissue and Fascia, Open Approach (ICD-10-PCS; principal; 2018-04-21)
PROC: 02HK3JZ Insertion of Pacemaker Lead into Right Ventricle, Percutaneous Approach (ICD-10-PCS; 2018-04-21)
PROC: 02H63JZ Insertion of Pacemaker Lead into Right Atrium, Percutaneous Approach (ICD-10-PCS; 2018-04-21)
DX: T81.41XA Infection following a procedure, superficial incisional surgical site, initial encounter (principal); A41.2 Sepsis due to unspecified staphylococcus; N17.0 Acute kidney failure with tubular necrosis; T81.31XA Disruption of external operation (surgical) wound, not elsewhere classified, initial encounter; E44.0 Moderate protein-calorie malnutrition; L03.818 Cellulitis of other sites; I44.1 Atrioventricular block, second degree; Y83.8 Other surgical procedures as the cause of abnormal reaction of the patient, or of later complication, without mention of misadventure at the time of the procedure; E11.21 Type 2 diabetes mellitus with diabetic nephropathy; D63.8 Anemia in other chronic diseases classified elsewhere; N18.3 Chronic kidney disease, stage 3 (moderate); I12.9 Hypertensive chronic kidney disease with stage 1 through stage 4 chronic kidney disease, or unspecified chronic kidney disease; Z85.3 Personal history of malignant neoplasm of breast; E66.01 Morbid (severe) obesity due to excess calories; E03.9 Hypothyroidism, unspecified; E11.22 Type 2 diabetes mellitus with diabetic chronic kidney disease; I25.10 Atherosclerotic heart disease of native coronary artery without angina pectoris; J44.9 Chronic obstructive pulmonary disease, unspecified; Y92.89 Other specified places as the place of occurrence of the external cause; Z79.899 Other long term (current) drug therapy; Z79.82 Long term (current) use of aspirin; Z68.36 Body mass index [BMI] 36.0-36.9, adult
CPT/HCPCS: 33208; 36415; 36569; 71045; 80048; 80053; 80202; 81001; 82962; 83036; 83605; 83880; 84443; 84484; 85007; 85025; 85027; 85610; 85730; 86850; 86900; 86901; 87040; 87077; 87081; 87186; 87205; 93005; 96361; 96365; 97110; 97116; 97163; 97530; A6257; G0378; J0690; J1815; J2250; J2543

== ENCOUNTER → 2018-05-30 | Outpatient (CLI) | payer MEDICARE, OTHER ==
[2018-05-30 12:17] LABS: Basophils # (auto) 0.1 uL; Eosinophils # (auto) 0.2 uL; Hemoglobin 10.8 g/dL (12.2-16.2); Lymphocytes # (auto) 2.2 uL; Red Cell Distribution Width 14.7 % (11.8-14.3)
[2018-05-30 12:20] LABS: Basophils % (auto) 0.8 % (0.0-2.0); Eosinophils % (auto) 2.3 % (0.0-7.0); Hematocrit 34.1 % (36.0-46.0); Mean Corpuscular Hemoglobin 27.2 pg (28.0-32.0); Mean Corpuscular Hgb Conc. 31.8 g/dL (32.0-36.0); Mean Corpuscular Volume 85.8 fL (80.0-100.0); Monocytes # (auto) 0.6 uL; Monocytes % (auto) 7.1 % (0.0-12.0); Neutrophils # (auto) 5.9 uL; Neutrophils % (auto) 65.8 % (37.0-80.0); Nucleated Red Blood Cells % 0.1 %; Platelet Count (auto) 374 10^3/uL (140-450); Red Blood Cells 3.97 10^6/uL (4.0-5.20)
[2018-05-30 12:31] LABS: Albumin 2.5 g/dL (3.4-5.0); Potassium 3.5 mmol/L (3.5-5.1)
[2018-05-30 12:34] LABS: Urine Blood 1+ /uL (Negative); Urine Specific Gravity 1.019 (1.001-1.035)
[2018-05-30 12:40] LABS: BUN/Creatinine Ratio 29.8; Bilirubin, Total 0.4 mg/dL (0.2-1.0); Calcium 9.6 mg/dL (8.5-10.1); Free T4 (Free Thyroxine) 1.23 ng/dL (0.89-1.76); Total Protein 6.7 g/dL (6.4-8.2)
== END | disposition home or self-care (01) ==
LOC: LAB 08:15
PROVIDERS: ATTEND Internal Medicine
DX: E78.5 Hyperlipidemia, unspecified (principal); E11.9 Type 2 diabetes mellitus without complications; E55.9 Vitamin D deficiency, unspecified; E03.9 Hypothyroidism, unspecified; D51.9 Vitamin B12 deficiency anemia, unspecified; D64.9 Anemia, unspecified; N39.0 Urinary tract infection, site not specified
CPT/HCPCS: 36415; 80053; 80061; 81003; 82306; 82607; 83036; 84439; 84443; 85025; 87086; 87088; 87186

== ENCOUNTER → 2018-06-30 | Outpatient (CLI) | payer MEDICARE, OTHER ==
[2018-06-30 12:43] LABS: Basophils # (auto) 0.1 uL; Basophils % (auto) 0.6 % (0.0-2.0); Eosinophils # (auto) 0.1 uL; Eosinophils % (auto) 1.2 % (0.0-7.0); Hematocrit 36.4 % (36.0-46.0); Hemoglobin 11.7 g/dL (12.2-16.2); Lymphocytes # (auto) 2.1 uL; Lymphocytes % (auto) 20.7 % (10.0-50.0); Mean Corpuscular Hemoglobin 27.5 pg (28.0-32.0); Mean Corpuscular Hgb Conc. 32.2 g/dL (32.0-36.0); Mean Corpuscular Volume 85.6 fL (80.0-100.0); Monocytes # (auto) 0.9 uL; Monocytes % (auto) 8.9 % (0.0-12.0); Neutrophils # (auto) 6.8 uL; Neutrophils % (auto) 68.6 % (37.0-80.0); Platelet Count (auto) 326 10^3/uL (140-450); Red Blood Cells 4.25 10^6/uL (4.0-5.20); Red Cell Distribution Width 16.3 % (11.8-14.3); White Blood Cell 9.9 10^3/uL (4.4-10.8)
[2018-06-30 12:56] LABS: Potassium 3.7 mmol/L (3.5-5.1)
[2018-06-30 13:03] LABS: BUN/Creatinine Ratio 30.9; Bilirubin, Total 0.3 mg/dL (0.2-1.0); Calcium 9.4 mg/dL (8.5-10.1); Total Protein 7.1 g/dL (6.4-8.2)
== END | disposition home or self-care (01) ==
LOC: LAB 10:15
PROVIDERS: ATTEND Internal Medicine
DX: D64.9 Anemia, unspecified (principal); I10 Essential (primary) hypertension; J44.9 Chronic obstructive pulmonary disease, unspecified
CPT/HCPCS: 36415; 80053; 85025